=== PATIENT | male | born 1960 | race African-American/Black ===

== ENCOUNTER 2016-08-23 14:39 | Inpatient (IN) | payer BC ==
--- NOTE | 2016-08-23 18:55 | HP ---
CIWA Score - CIWA Score Nausea/Vomitin-Mild Nausea/No Vomiting Muscle Tremors: 4-Moderate,w/Arms Extend Anxiety: 4-Mod. Anxious/Guarded Agitation: 4-Moderately Restless Paroxysmal Sweats: 2 Orientation: 1-Uncertain about Date Tacttile Disturbances: 0-None Auditory Disturbances: 0-None Visual Disturbances: 0-None Headache: 1-Very Mild CIWA-Ar Total Score: 17 Admission ROS BHS - HPI Chief Complaint: WITHDRAWAL SX Allergies/Adverse Reactions: Allergies Allergy/AdvReac Type Severity Reaction Status Date / Time No Known Allergies Allergy Verified 08/23/16 17:52 History of Present Illness: 55 YEARS OLD MALE WITH LONG HISTORY OF ALCOHOL NICOTINE COCAINE DEPENDENCE, HAS HYPERTENSION HEPATITIS GLAUCOMA BPH POSITIVE PPD AND DEPRESSION IS ADMITTED TO DETOX Exam Limitations: No Limitations - Ebola screening Have you traveled outside of the country in the last 21 days: No Have you had contact with anyone from an Ebola affected area: No Have you been sick,other than usual withdrawal symptoms: No Do you have a fever: No - Review of Systems Constitutional: Chills, Loss of Appetite, Changes in sleep, Unintentional Wgt. Loss, Unexplained wgt Loss EENT: reports: Dental Problems (PARTIAL UPPER), Other (GLAUCOMA X BOTH) Respiratory: reports: No Symptoms reported Cardiac: reports: No Symptoms Reported GI: reports: Nausea, Poor Appetite, Poor Fluid Intake, Abdominal cramping : reports: Urgency Musculoskeletal: reports: Back Pain Integumentary: reports: No Symptoms Reported Neuro: reports: Tremors Endocrine: reports: No Symptoms Reported Hematology: reports: No Symptoms Reported Psychiatric: reports: Judgement Intact, Anxious, Depressed Other Systems: Reviewed and Negative Patient History - Patient Medical History Hx Anemia: Yes Hx Asthma: No Hx Chronic Obstructive Pulmonary Disease (COPD): No Hx Cancer: No Hx Cardiac Disorders: No Hx Congestive Heart Failure: No Hx Hypertension: Yes Hx Hypercholesterolemia: No Hx Pacemaker: No HX Cerebrovascular Accident: No Hx Seizures: No Hx Dementia: No Hx Diabetes: No Hx Gastrointestinal Disorders: No Hx Liver Disease: No Hx Genitourinary Disorders: No Hx Sexually Transmitted Disorders: No Hx Renal Disease (ESRD): No Hx Thyroid Disease: No Hx Human Immunodeficiency Virus (HIV): No Hx Hepatitis C: Yes Hx Depression: Yes Hx Suicide Attempt: No Hx Bipolar Disorder: No Hx Schizophrenia: No - Patient Surgical History Past Surgical History: Yes Hx Orthopedic Surgery: Yes (Fx lt ankle 01/2012) Anesthesia Reaction: No - PPD History Previous Implant?: Yes Documented Results: Positive w/proof Implanted On Prior R Admission?: No PPD to be Administered?: No - Smoking Cessation Smoking history: Current every day smoker Have you smoked in the past 12 months: Yes Aproximately how many cigarettes per day: 10 Cigars Per Day: 0 Hx Chewing Tobacco Use: No Initiated information on smoking cessation: Yes 'Breaking Loose' booklet given: 08/23/16 - Substance & Tx. History Hx Alcohol Use: Yes Hx Substance Use: Yes Substance Use Type: Alcohol, Cocaine Hx Substance Use Treatment: Yes - Substances Abused Alcohol Route: Oral Frequency: Daily Amount used: 2 pints vodka Age of first use: 7 Date of Last Use: 08/23/16 Cocaine Route: Smoking Frequency: Daily Amount used: $50 Age of first use: 28 Date of Last Use: 08/22/16 Family Disease History - Family Disease History Family Disease History: CA: Father (liver), Mother (breast) Admission Physical Exam [facility] - Vital Signs Vital Signs: Vital Signs - 24 hr 08/23/16 17:42 Temperature 95.1 F L Pulse Rate 96 H Respiratory 20 Rate Blood Pressure 139/85 - Physical General Appearance: Yes: Appropriately Dressed, Mild Distress, Alcohol on Breath , Thin, Tremorous, Irritable, Sweating, Anxious HEENTM: Yes: Hearing grossly Normal, Normal ENT Inspection, Normocephalic, Normal Voice Respiratory: Yes: Chest Non-Tender, Lungs Clear, Normal Breath Sounds, No Respiratory Distress, No Accessory Muscle Use Neck: Yes: Supple, Trachea in good position Breast: Yes: Breasts Symetrical Cardiology: Yes: Regular Rhythm, S1, S2, Tachycardia Abdominal: Yes: Non Tender, Soft Genitourinary: Yes: Within Normal Limits Back: Yes: Normal Inspection Musculoskeletal: Yes: full range of Motion, Gait Steady, Back pain, Muscle Pain Extremities: Yes: Normal Range of Motion, Non-Tender, Tremors Neurological: Yes: Alert, Motor Strength 5/5, Normal Response, Depressed Affect Integumentary: Yes: Warm Lymphatic: Yes: Within Normal Limits - Diagnostic (1) Alcohol dependence with uncomplicated withdrawal Current Visit: Yes Status: Acute (2) Hypertension Current Visit: Yes Status: Acute Qualifiers: Hypertension type: essential hypertension Qualified Code(s): I10 - Essential (primary) hypertension (3) Glaucoma Current Visit: Yes Status: Acute Qualifiers: Glaucoma type: unspecified type Laterality: bilateral Qualified Code(s): H40.9 - Unspecified glaucoma (4) BPH (benign prostatic hyperplasia) Current Visit: Yes Status: Acute Qualifiers: Prostatic enlargement morphology: non-nodular Lower urinary tract symptom presence: symptoms present Qualified Code(s): N40.1 - Benign prostatic hyperplasia with lower urinary tract symptoms (5) Hepatitis C antibody test positive Current Visit: Yes Status: Chronic (6) Weight loss Current Visit: Yes Status: Acute (7) Positive PPD, treated Current Visit: Yes Status: Resolved Comment: CHEST X RAY PENDING Cleared for Admission BHS - Detox or Rehab S Level of Care: Medically Managed Detox Regimen/Protocol: Librium BHS Breath Alcohol Content Breath Alcohol Content: 0 Vital Signs - Vital Signs Vital Signs Refused: No Temperature: 97.1 F Temperature Source: Oral Pulse Rate: 85 Respiratory Rate: 20 Blood Pressure: 120/76 BP Location: Left Arm Blood Pressure Position: Sitting - Height Height: 6 ft - Weight Weight: 140 lb Weight Measurement Method: Standing Scale Body Mass Index (BMI): 19.0 - Bowel Function Bowel Movement: Yes Urine Drug Screen - Control Is Test Valid: Yes - Results Drug Screen Negative: No Urine Drug Screen Results: INGRID-Cocaine
[2016-08-23] MEDS ORDERED: hydrOXYzine PAMOATE 50 MG CAPSULE (FP) PO PRN (19:00)
[2016-08-23] MEDS ORDERED: NICOTINE POLACRILEX 2 MG GUM BC PRN (19:00)
[2016-08-23] MEDS ORDERED: MAGNESIUM CITRATE 300 ML BOTTLE PO PRN (19:00)
[2016-08-23] MEDS ORDERED: ACETAMINOPHEN 325 MG TABLET (FP) PO PRN (19:00)
[2016-08-23] MEDS ORDERED: chlordiazePOXIDE HCL 25 MG CAPSULE PO PRN (19:00)
[2016-08-23] MEDS ORDERED: MENTHOL/PHENOL 1 EACH UD MM PRN (19:00)
[2016-08-23] MEDS ORDERED: guaiFENesin/D-METHORPHAN HB 10 ML UNIT-DOSE CUPS PO PRN (19:00)
[2016-08-23] MEDS ORDERED: MAGNESIUM HYDROX 2400MG/30ML ORAL SUSPENSION 30 ML CUP PO PRN (19:00)
[2016-08-23] MEDS ORDERED: LOPERAMIDE HCL 2 MG CAPSULE PO PRN (19:00)
[2016-08-23] MEDS ORDERED: IBUPROFEN 400 MG TABLET (FP) PO PRN (19:00)
[2016-08-23] MEDS ORDERED: P-EPHED 60MG/TRIPROLIDI 2.5MG TABLET PO PRN (19:00)
[2016-08-23 19:06] VITALS: BMI 19.0
[2016-08-23] MEDS: TAMSULOSIN HCL 0.4 MG CAP.ER.24H (FP) PO SCH (22:06)
[2016-08-23] MEDS: LATANOPROST 0.005% OPHTH SOLN 2.5ML BOTTLE OU SCH (22:06)
[2016-08-23] MEDS: diphenhydrAMINE HCL 50 MG CAPSULE PO PRN (22:07)
[2016-08-23] MEDS: chlordiazePOXIDE HCL 25 MG CAPSULE PO SCH (22:07)
[2016-08-23] MEDS: THIAMINE HCL 100 MG TABLET (FP) PO SCH (22:07)
[2016-08-23 23:18] LABS: URINE APPEARANCE CLEAR; URINE BILIRUBIN NEGATIVE (NEGATIVE); URINE BLOOD NEGATIVE (NEGATIVE); URINE COLOR STRAW; URINE GLUCOSE (UA) NEGATIVE (NEGATIVE); URINE KETONE NEGATIVE (NEGATIVE); URINE LEUK ESTERASE NEGATIVE (NEGATIVE); URINE NITRITE NEGATIVE (NEGATIVE); URINE PROTEIN NEGATIVE (NEGATIVE); URINE UROBILINOGEN NEGATIVE E.U./dl (0.2-1.0)
[2016-08-24] MEDS: chlordiazePOXIDE HCL 25 MG CAPSULE PO SCH ×4 (06:07→22:22)
[2016-08-24 10:09] LABS: MCH 29.4 pg (25.7-33.7); MCHC 32.2 g/dl (32.0-35.9); MEAN CELL VOLUME 91.1 fl (80-96); MEAN PLT VOLUME 10.7 fl (7.5-11.1); PLATELET COUNT 209 K/MM3 (134-434)
[2016-08-24] MEDS: METOPROLOL SUCCINATE 50 MG TAB.SR.24H (FP) PO SCH (10:25)
[2016-08-24] MEDS: PRENATAL VITAMINS W/ FOLIC ACID TABLET (FP) PO SCH (10:25)
[2016-08-24] MEDS: NIFEdipine E.R 60 MG TABLET (UD) PO SCH (10:25)
[2016-08-24] MEDS: NICOTINE 14 MG/24 HOURS TOPICAL PATCH TD SCH (10:26)
[2016-08-24] MEDS: LIDOCAINE 5% TOPICAL PATCH TP SCH (10:26)
[2016-08-24 10:36] LABS: ALBUMIN 3.4 g/dl (3.4-5.0); BILIRUBIN,TOTAL 0.3 mg/dL (0.2-1.0); CALCIUM 9.4 mg/dL (8.5-10.1); TOT PROT 7.4 g/dl (6.4-8.2)
--- NOTE | 2016-08-24 11:22 | PN ---
S CIWA - CIWA Score Nausea/Vomitin Muscle Tremors: 2 Anxiety: 2 Agitation: 2 Paroxysmal Sweats: 2 Orientation: 0-Oriented Tacttile Disturbances: 2-Mild Itch/Numbness/Burn Auditory Disturbances: 0-None Visual Disturbances: 0-None Headache: 0-None Present CIWA-Ar Total Score: 12 BHS Progress Note (SOAP) Subjective: feeling better ,sweats, lbp Objective: 08/24/16 11:22 Vital Signs Temperature 97.7 F 08/24/16 11:20 Pulse Rate 94 H 08/24/16 11:20 Respiratory Rate 18 08/24/16 11:20 Blood Pressure 123/88 08/24/16 11:20 O2 Sat by Pulse Oximetry (%) Laboratory Tests 08/23/16 08/24/16 08/24/16 22:00 07:00 07:00 WBC 7.0 RBC 4.38 Hgb 12.9 Hct 40.0 MCV 91.1 MCHC 32.2 RDW 14.0 Plt Count 209 D MPV 10.7 D Sodium 142 Potassium 4.6 Chloride 105 Carbon Dioxide 31 Anion Gap 6 L BUN 32 H D Creatinine 2.0 H D Creat Clearance w eGFR 34.86 Random Glucose 126 H Calcium 9.4 Total Bilirubin 0.3 D AST 47 H D ALT 101 H D Alkaline Phosphatase 65 Total Protein 7.4 Albumin 3.4 Urine Color Straw Urine Appearance Clear Urine pH 5.0 Ur Specific [place] 1.017 Urine Protein Negative Urine Glucose (UA) Negative Urine Ketones Negative Urine Blood Negative Urine Nitrite Negative Urine Bilirubin Negative Urine Urobilinogen Negative Ur Leukocyte Esterase Negative pt aox3 in nad ambulating Assessment: 08/24/16 11:23 withdrawal sx's htn renal failure elevated transaminases 08/24/16 11:24 Plan: cont. detox increase fluids repeat sma7, sgot sgpt d/c tylenol
--- NOTE | 2016-08-24 16:45 | CONSULT ---
[facility] Psychiatric Consult - Data Date of interview: 08/24/16 Admission source: [facility] Identifying data: Readmission to [facility] for this 55 y/o AA male seeking detox treatment for alcohol and cocaine dependence. Substance Abuse History: - Smoking Cessation. Smoking history: Current every day smoker. Have you smoked in the past 12 months: Yes. Aproximately how many cigarettes per day: 10. Cigars Per Day: 0. Hx Chewing Tobacco Use: No. Initiated information on smoking cessation: Yes. 'Breaking Loose' booklet given : 08/23/16. - Substance & Tx. History. Hx Alcohol Use: Yes. Hx Substance Use : Yes. Substance Use Type: Alcohol, Cocaine. Hx Substance Use Treatment: Yes. - Substances Abused. Alcohol. Route: Oral. Frequency: Daily. Amount used: 2 pints vodka. Age of first use: 7. Date of Last Use: 08/23/16. Cocaine. Route: Smoking. Frequency: Daily. Amount used: $50. Age of first use: 28. Date of Last Use: 08/22/16. Confirmed by patient. Medical History: Glaucoma (bilateral),hypertension,anemia,hepatitis C and a history of orthosurgery for fracture of left ankle (2011). Psychiatric History: No history of psychiatric hospitalizations." Just visits to emergency rooms." Diagnosed with MDD versus Bipolar Affective Disorder (self- report).Prescribed zoloft 100 mg/day + seroquel 100 mg/hs.Mr Marcos gets his OPD care at his [facility] residence,[facility].No history of suicide attempts. Physical/Sexual Abuse/Trauma History: Patient denies. Additional Comment: Urine Drug Screen Results: INGIRD-Cocaine.Noted. Mental Status Exam - Mental Status Exam Alert and Oriented to: Time, Place, Person Cognitive Function: Good Patient Appearance: Well Groomed Mood: Hopeful, Euthymic Affect: Normal Range Patient Behavior: Fatigued, Appropriate, Cooperative Speech Pattern: Clear Voice Loudness: Normal Thought Process: Goal Oriented Thought Disorder: Not Present Hallucinations: Denies Suicidal Ideation: Denies Homicidal Ideation: Denies Insight/Judgement: Poor Sleep: Poorly, Difficulty falling asleep Appetite: Good Muscle strength/Tone: Normal Gait/Station: Normal Psychiatric Findings - Problem List ([place] 1, 2,3) (1) Alcohol dependence with uncomplicated withdrawal Current Visit: Yes Status: Acute (2) Cocaine dependence Current Visit: Yes Status: Acute (3) Drug-induced mood disorder Current Visit: Yes Status: Acute (4) Nicotine dependence Current Visit: Yes Status: Acute (5) BPH (benign prostatic hyperplasia) Current Visit: Yes Status: Chronic Qualifiers: Prostatic enlargement morphology: non-nodular Lower urinary tract symptom presence: symptoms present Qualified Code(s): N40.1 - Benign prostatic hyperplasia with lower urinary tract symptoms (6) Glaucoma Current Visit: Yes Status: Chronic Qualifiers: Glaucoma type: unspecified type Laterality: bilateral Qualified Code(s): H40.9 - Unspecified glaucoma (7) Hypertension Current Visit: Yes Status: Chronic Qualifiers: Hypertension type: essential hypertension Qualified Code(s): I10 - Essential (primary) hypertension (8) Hepatitis C antibody test positive Current Visit: Yes Status: Chronic (9) Lower back pain Current Visit: Yes Status: Chronic - Initial Treatment Plan Initial Treatment Plan: Psychoeducation.Detoxification.Medications : seroquel 100 mg po hs + zoloft 50 mg po daily.Side effects/benefits discussed with patient.He agrees with plan of care.Observation.
--- NOTE | 2016-08-24 16:55 | EKG ---
Test Reason : Blood Pressure : / mmHG Vent. Rate : 073 BPM Atrial Rate : 073 BPM P-R Int : 112 ms QRS Dur : 080 ms QT Int : 378 ms P-R-T Axes : 074 076 051 degrees QTc Int : 416 ms NORMAL SINUS RHYTHM WITH SINUS ARRHYTHMIA POSSIBLE LEFT ATRIAL ENLARGEMENT LEFT VENTRICULAR HYPERTROPHY NONSPECIFIC ST AND T WAVE ABNORMALITY ABNORMAL ECG NO PREVIOUS ECGS AVAILABLE Confirmed by ART FRANKLIN MD ([id number]) on 08/24/2016 4:55:02 PM Referred By: Confirmed By:ART FRANKLIN MD
[2016-08-24] MEDS: MAG HYDROX/AL HYDROX/SIMETH 30 ML UNIT-DOSE CUP PO PRN (17:22)
[2016-08-24] MEDS: THIAMINE HCL 100 MG TABLET (FP) PO SCH (22:22)
[2016-08-24] MEDS: TAMSULOSIN HCL 0.4 MG CAP.ER.24H (FP) PO SCH (22:22)
[2016-08-24] MEDS: QUEtiapine FUMARATE 100 MG TABLET (FP) PO SCH (22:22)
[2016-08-24] MEDS: diphenhydrAMINE HCL 50 MG CAPSULE PO PRN (22:22)
[2016-08-24] MEDS: LATANOPROST 0.005% OPHTH SOLN 2.5ML BOTTLE OU SCH (22:23)
[2016-08-25] MEDS: chlordiazePOXIDE HCL 25 MG CAPSULE PO SCH ×3 (05:20→17:42)
--- NOTE | 2016-08-25 09:43 | PN ---
[facility] CIWA - CIWA Score Nausea/Vomitin-No Nausea/No Vomiting Muscle Tremors: 4-Moderate,w/Arms Extend Anxiety: 2 Agitation: 3 Paroxysmal Sweats: 2 Orientation: 0-Oriented Tacttile Disturbances: 0-None Auditory Disturbances: 0-None Visual Disturbances: 0-None Headache: 0-None Present CIWA-Ar Total Score: 11 S Progress Note (SOAP) Subjective: body ache irritable sweats interrupted sleep shakes Objective: 08/25/16 09:42 Vital Signs Temperature 97.3 F L 08/25/16 06:00 Pulse Rate 78 08/25/16 06:00 Respiratory Rate 18 08/25/16 06:00 Blood Pressure 119/85 08/25/16 06:00 O2 Sat by Pulse Oximetry (%) Laboratory Tests 08/23/16 08/24/16 08/24/16 22:00 07:00 07:00 WBC 7.0 RBC 4.38 Hgb 12.9 Hct 40.0 MCV 91.1 MCHC 32.2 RDW 14.0 Plt Count 209 D MPV 10.7 D Sodium 142 Potassium 4.6 Chloride 105 Carbon Dioxide 31 Anion Gap 6 L BUN 32 H D Creatinine 2.0 H D Creat Clearance w eGFR 34.86 Random Glucose 126 H Calcium 9.4 Total Bilirubin 0.3 D AST 47 H D ALT 101 H D Alkaline Phosphatase 65 Total Protein 7.4 Albumin 3.4 Urine Color Straw Urine Appearance Clear Urine pH 5.0 Ur Specific [place] 1.017 Urine Protein Negative Urine Glucose (UA) Negative Urine Ketones Negative Urine Blood Negative Urine Nitrite Negative Urine Bilirubin Negative Urine Urobilinogen Negative Ur Leukocyte Esterase Negative RPR Titer 08/24/16 07:00 WBC RBC Hgb Hct MCV MCHC RDW Plt Count MPV Sodium Potassium Chloride Carbon Dioxide Anion Gap BUN Creatinine Creat Clearance w eGFR Random Glucose Calcium Total Bilirubin AST ALT Alkaline Phosphatase Total Protein Albumin Urine Color Urine Appearance Urine pH Ur Specific [place] Urine Protein Urine Glucose (UA) Urine Ketones Urine Blood Urine Nitrite Urine Bilirubin Urine Urobilinogen Ur Leukocyte Esterase RPR Titer Nonreactive awake/alert ambulating no acute distress Assessment: 08/25/16 09:43 withdrawal sx Plan: continue detox increase fluids lidocaine patch analgesic balm
[2016-08-25 10:21] LABS: CREATININE 1.5 mg/dL (0.7-1.3)
[2016-08-25] MEDS: LIDOCAINE 5% TOPICAL PATCH TP SCH (10:43)
[2016-08-25] MEDS: PRENATAL VITAMINS W/ FOLIC ACID TABLET (FP) PO SCH (10:44)
[2016-08-25] MEDS: METHYL SALICYLATE/MENTHOL OINT 30 GM TUBE TP SCH ×2 (10:44→22:46)
[2016-08-25] MEDS: NIFEdipine E.R 60 MG TABLET (UD) PO SCH (10:44)
[2016-08-25] MEDS: SERTRALINE HCL 50 MG TABLET (FP) PO SCH (10:44)
[2016-08-25] MEDS: METOPROLOL SUCCINATE 50 MG TAB.SR.24H (FP) PO SCH (10:44)
[2016-08-25 10:47] LABS: SGOT/AST 33 U/L (15-37); SGPT/ALT 76 U/L (12-78)
[2016-08-25] MEDS: NICOTINE 14 MG/24 HOURS TOPICAL PATCH TD SCH (10:47)
[2016-08-25] MEDS: MAG HYDROX/AL HYDROX/SIMETH 30 ML UNIT-DOSE CUP PO PRN (17:40)
[2016-08-25] MEDS: LATANOPROST 0.005% OPHTH SOLN 2.5ML BOTTLE OU SCH (22:30)
[2016-08-25] MEDS: THIAMINE HCL 100 MG TABLET (FP) PO SCH (22:47)
[2016-08-25] MEDS: chlordiazePOXIDE 5 MG CAPSULE PO SCH (22:47)
[2016-08-25] MEDS: QUEtiapine FUMARATE 100 MG TABLET (FP) PO SCH (22:47)
[2016-08-25] MEDS: TAMSULOSIN HCL 0.4 MG CAP.ER.24H (FP) PO SCH (22:47)
[2016-08-26] MEDS: chlordiazePOXIDE 5 MG CAPSULE PO SCH ×3 (05:25→18:02)
[2016-08-26] MEDS: METOPROLOL SUCCINATE 50 MG TAB.SR.24H (FP) PO SCH (11:03)
[2016-08-26] MEDS: PRENATAL VITAMINS W/ FOLIC ACID TABLET (FP) PO SCH (11:03)
[2016-08-26] MEDS: NIFEdipine E.R 60 MG TABLET (UD) PO SCH (11:03)
[2016-08-26] MEDS: SERTRALINE HCL 50 MG TABLET (FP) PO SCH (11:03)
[2016-08-26] MEDS: METHYL SALICYLATE/MENTHOL OINT 30 GM TUBE TP SCH ×2 (11:04→22:15)
--- NOTE | 2016-08-26 11:04 | PN ---
BHS Progress Note (SOAP) Subjective: interrrupted sleep, sweats, shakes lbp Objective: 08/26/16 11:03 Vital Signs Temperature 97.9 F 08/26/16 09:38 Pulse Rate 92 H 08/26/16 09:38 Respiratory Rate 16 08/26/16 09:38 Blood Pressure 125/89 08/26/16 09:38 O2 Sat by Pulse Oximetry (%) Laboratory Tests 08/23/16 08/24/16 08/24/16 22:00 07:00 07:00 WBC 7.0 RBC 4.38 Hgb 12.9 Hct 40.0 MCV 91.1 MCHC 32.2 RDW 14.0 Plt Count 209 D MPV 10.7 D Sodium 142 Potassium 4.6 Chloride 105 Carbon Dioxide 31 Anion Gap 6 L BUN 32 H D Creatinine 2.0 H D Creat Clearance w eGFR 34.86 Random Glucose 126 H Calcium 9.4 Total Bilirubin 0.3 D AST 47 H D ALT 101 H D Alkaline Phosphatase 65 Total Protein 7.4 Albumin 3.4 Urine Color Straw Urine Appearance Clear Urine pH 5.0 Ur Specific [place] 1.017 Urine Protein Negative Urine Glucose (UA) Negative Urine Ketones Negative Urine Blood Negative Urine Nitrite Negative Urine Bilirubin Negative Urine Urobilinogen Negative Ur Leukocyte Esterase Negative RPR Titer 08/24/16 08/25/16 08/25/16 07:00 07:00 07:00 WBC RBC Hgb Hct MCV MCHC RDW Plt Count MPV Sodium 144 Potassium 4.4 Chloride 110 H Carbon Dioxide 30 Anion Gap 4 L BUN 30 H Creatinine 1.5 H D Creat Clearance w eGFR Random Glucose 90 D Calcium 9.0 Total Bilirubin AST 33 D ALT 76 D Alkaline Phosphatase Total Protein Albumin Urine Color Urine Appearance Urine pH Ur Specific [place] Urine Protein Urine Glucose (UA) Urine Ketones Urine Blood Urine Nitrite Urine Bilirubin Urine Urobilinogen Ur Leukocyte Esterase RPR Titer Nonreactive pt aox3 , lying in bed in nad Assessment: 08/26/16 11:03 withdrawal sx's Plan: cont. detox increase fluids d/c in am
[2016-08-26] MEDS: LIDOCAINE 5% TOPICAL PATCH TP SCH (11:06)
[2016-08-26] MEDS: NICOTINE 14 MG/24 HOURS TOPICAL PATCH TD SCH (11:06)
[2016-08-26] MEDS: TAMSULOSIN HCL 0.4 MG CAP.ER.24H (FP) PO SCH (22:15)
[2016-08-26] MEDS: LATANOPROST 0.005% OPHTH SOLN 2.5ML BOTTLE OU SCH (22:15)
[2016-08-26] MEDS: QUEtiapine FUMARATE 100 MG TABLET (FP) PO SCH (22:15)
[2016-08-26] MEDS: chlordiazePOXIDE HCL 10 MG CAPSULE PO SCH (22:15)
[2016-08-26] MEDS: THIAMINE HCL 100 MG TABLET (FP) PO SCH (22:16)
[2016-08-27] MEDS: chlordiazePOXIDE HCL 10 MG CAPSULE PO SCH (05:34)
--- NOTE | 2016-08-27 08:52 | PN ---
S Progress Note (SOAP) Subjective: ALERT,NO COMPLAINT Objective: 08/27/16 08:50 Vital Signs Temperature 97.3 F L 08/27/16 06:54 Pulse Rate 80 08/27/16 06:54 Respiratory Rate 18 08/27/16 06:54 Blood Pressure 118/76 08/27/16 06:54 O2 Sat by Pulse Oximetry (%) Assessment: 08/27/16 08:50 DETOX COMPLETED,NO WITHDRAWAL SYMPTOM Plan: DISCHARGE TODAY,FOLLOW UP WITH AFTER CARE PROGRAM ARRANGEMENT AND PMD FOR MEDICAL PROBLEM
--- NOTE | 2016-08-27 08:56 | DS ---
[facility] Detox Discharge Summary Admission Date: 08/23/16 Discharge Date: 08/27/16 - History Present History: Alcohol Dependence, Cocaine Dependence Additional Comments: FOLLOW UP WITH AFTER [facility] PROGRAM ARRANGEMENT AND PMD FOR MEDICAL PROBLEM Pertinent Past History: HYPERTENSION GLAUCOMA BPH HEPATITIS C WEIGHT LOSS POSITIVE PPD - Physical Exam Results Vital Signs: Vital Signs Temperature 97.3 F L 08/27/16 06:54 Pulse Rate 80 08/27/16 06:54 Respiratory Rate 18 08/27/16 06:54 Blood Pressure 118/76 08/27/16 06:54 O2 Sat by Pulse Oximetry (%) Pertinent Admission Physical Exam Findings: WITHDRAWAL SYMPTOM - Treatment Hospital Course: Detox Protocol Followed, Detoxed Safely, Responded well, Discharged Condition Good Patient has Accepted a Rehab Referral to: [facility]CL[facility]ED - Medication Discharge Medications: Ambulatory Orders Latanoprost 0.005% Eye Drops [Xalatan 0.005% Eye Drops -] 1 drop OU HS #30 drops 09/21/13 Metoprolol Succinate [Toprol Xl -] 50 mg PO DAILY 08/23/16 Nifedipine ER [Procardia Xl -] 60 mg PO DAILY 08/23/16 Tamsulosin HCl [Flomax] 0.4 mg PO DAILY 08/23/16 Quetiapine Fumarate [Seroquel] 100 mg PO HS #30 tablet 08/24/16 Sertraline HCl [Zoloft -] 50 mg PO DAILY #30 tablet 08/24/16 - Diagnosis (1) Alcohol dependence with uncomplicated withdrawal Current Visit: Yes Status: Acute (2) Cocaine dependence Current Visit: Yes Status: Acute (3) Nicotine dependence Current Visit: Yes Status: Acute (4) Weight loss Current Visit: Yes Status: Acute (5) BPH (benign prostatic hyperplasia) Current Visit: Yes Status: Chronic Qualifiers: Prostatic enlargement morphology: non-nodular Lower urinary tract symptom presence: symptoms present Qualified Code(s): N40.1 - Benign prostatic hyperplasia with lower urinary tract symptoms (6) Glaucoma Current Visit: Yes Status: Chronic Qualifiers: Glaucoma type: unspecified type Laterality: bilateral Qualified Code(s): H40.9 - Unspecified glaucoma (7) Hepatitis C antibody test positive Current Visit: Yes Status: Chronic (8) Lower back pain Current Visit: Yes Status: Chronic (9) Positive PPD, treated Current Visit: Yes Status: Resolved - AMA Did Patient Leave Against Medical Advice: No
[2016-08-27 10:28] VITALS: BP 112/85; PULSE 87; TEMP 99
[2016-08-27] MEDS: SERTRALINE HCL 50 MG TABLET (FP) PO SCH (10:52)
[2016-08-27] MEDS: METOPROLOL SUCCINATE 50 MG TAB.SR.24H (FP) PO SCH (10:52)
[2016-08-27] MEDS: NICOTINE 14 MG/24 HOURS TOPICAL PATCH TD SCH (10:52)
[2016-08-27] MEDS: NIFEdipine E.R 60 MG TABLET (UD) PO SCH (10:52)
[2016-08-27] MEDS: PRENATAL VITAMINS W/ FOLIC ACID TABLET (FP) PO SCH (10:52)
== END 2016-08-27 11:42 | disposition home or self-care (01) | DRG 774 ==
LOC: YASAS 14:39 → Y6N 19:03
PROVIDERS: ADMIT Internal Medicine Addiction Medicine; ATTEND Internal Medicine Addiction Medicine
PROC: HZ2ZZZZ Detoxification Services for Substance Abuse Treatment (ICD-10-PCS; principal; 2016-08-27)
DX: F10.230 Alcohol dependence with withdrawal, uncomplicated (principal); F14.20 Cocaine dependence, uncomplicated; F17.210 Nicotine dependence, cigarettes, uncomplicated; F19.24 Other psychoactive substance dependence with psychoactive substance-induced mood disorder; N40.1 Benign prostatic hyperplasia with lower urinary tract symptoms; M54.5 Low back pain; G89.29 Other chronic pain; H40.9 Unspecified glaucoma; R76.11 Nonspecific reaction to tuberculin skin test without active tuberculosis; R63.4 Abnormal weight loss; Z68.1 Body mass index [BMI] 19.9 or less, adult
CPT/HCPCS: 36415; 71020-TC; 80048; 80053; 81003; 84450; 84460; 85027; 86593; 93005; 93010

== ENCOUNTER 2018-06-19 13:43 | Inpatient (IN) | payer BC ==
[2018-06-19 21:32] VITALS: BMI 18.6
[2018-06-19] MEDS ORDERED: MELATONIN 5 MG TABLETS PO PRN (22:00)
--- NOTE | 2018-06-19 22:03 | HP ---
CIWA Score Nausea/Vomitin-Mild Nausea/No Vomiting Muscle Tremors: 4-Moderate,w/Arms Extend Anxiety: 4-Mod. Anxious/Guarded Agitation: 1-Slight > Activity Paroxysmal Sweats: 2 Orientation: 3-Disoriented Date>2 days Tacttile Disturbances: 1-Very Mild Itch/Numbness Auditory Disturbances: 0-None Visual Disturbances: 0-None Headache: 0-None Present CIWA-Ar Total Score: 16 - Admission Criteria OASAS Guidelines: Admission for Medically Managed Detox: Requires at least one of the followin. CIWA greater than 12 2. Seizures within the past 24 hours 3. Delirium tremens within the past 24 hours 4. Hallucinations within the past 24 hours 5. Acute intervention needed for co occurring medical disorder 6. Acute intervention needed for co occurring psychiatric disorder 7. Severe withdrawal that cannot be handled at a lower level of care (continued vomiting, continued diarrhea, abnormal vital signs) requiring intravenous medication and/or fluids 8. Admission ROS S - [facility] Chief Complaint: Alcohol withdrawal symptoms Allergies/Adverse Reactions: Allergies Allergy/AdvReac Type Severity Reaction Status Date / Time No Known Allergies Allergy Verified 08/23/16 17:52 History of Present Illness: 57 years ol male with a long history of alcohol dependence is seeking admission to Detox. Patient was in detox in January 2018 at [facility]. He reports 2 years of sobriety. He has medical history of Anemia, Glaucoma, BPH, Low back pain, Hypertension, Hep C, anxiety and Depression. He reports suicide attempt in 1978 and denies suicidal ideation at this time. Exam Limitations: No Limitations - Ebola screening Have you traveled outside of the country in the last 21 days: No Have you had contact with anyone from an Ebola affected area: No Have you been sick,other than usual withdrawal symptoms: No Do you have a fever: No - Review of Systems Constitutional: Chills, Loss of Appetite, Malaise, Night Sweats, Changes in sleep EENT: reports: No Symptoms Reported, Blurred Vision Respiratory: reports: No Symptoms reported Cardiac: reports: No Symptoms Reported GI: reports: Nausea, Poor Appetite, Poor Fluid Intake, Vomiting, Abdominal cramping : reports: No Symptoms Reported Musculoskeletal: reports: Back Pain, Muscle Pain, Muscle Weakness, Joint Stiffness Integumentary: reports: Dryness, Flushing Neuro: reports: Headache, Tremors Endocrine: reports: No Symptoms Reported Hematology: reports: Anemia Psychiatric: reports: Anxious, Depressed Other Systems: Reviewed and Negative Patient History - Patient Medical History Hx Anemia: Yes (Not on medication ) Hx Asthma: No Hx Chronic Obstructive Pulmonary Disease (COPD): No Hx Cancer: No Hx Cardiac Disorders: No Hx Congestive Heart Failure: No Hx Hypertension: Yes (Nifedipine, Metoprolol) Hx Hypercholesterolemia: No Hx Pacemaker: No HX Cerebrovascular Accident: No Hx Seizures: No Hx Dementia: No Hx Diabetes: No Hx Gastrointestinal Disorders: No Hx Liver Disease: Yes (Hep C) Hx Genitourinary Disorders: Yes (BPH - Tamsulosin) Hx Sexually Transmitted Disorders: No Hx Renal Disease (ESRD): No Hx Thyroid Disease: No Hx Human Immunodeficiency Virus (HIV): No Hx Hepatitis C: Yes (Not treated) Hx Depression: Yes Hx Suicide Attempt: Yes (Suicide attempt in 1978, denies suicidal ideation at this time) Hx Bipolar Disorder: No Hx Schizophrenia: No Other Medical History: Anxiety, Glaucoma, low back pain - Not on medication - Patient Surgical History Past Surgical History: Yes Hx Orthopedic Surgery: Yes (Fx lt ankle 01/2012) Anesthesia Reaction: No - PPD History Previous Implant?: No (PPD POSITIVE. INH and VIT. B 1993) Documented Results: Positive w/o proof Implanted On Prior [facility] Admission?: No PPD to be Administered?: No - Reproductive History Patient is a Female of Child Bearing Age (11 -55 yrs old): No (MALE) - Smoking Cessation Smoking history: Current every day smoker Have you smoked in the past 12 months: Yes Aproximately how many cigarettes per day: 10 Cigars Per Day: 0 Hx Chewing Tobacco Use: No Initiated information on smoking cessation: Yes 'Breaking Loose' booklet given: 06/19/18 - Substances Abused Alcohol Route: Oral Frequency: Daily Amount used: 1 PINT VODKA Age of first use: 13 Date of Last Use: 06/19/18 Cocaine Route: Smoking Frequency: Daily Amount used: $50 Age of first use: 28 Date of Last Use: 06/18/18 Family Disease History - Family Disease History Family Disease History: CA: Father (liver), Mother (breast) Admission Physical Exam [facility] - Vital Signs Vital Signs: Vital Signs - 24 hr 06/19/18 21:24 Temperature 97.4 F L Pulse Rate 81 Respiratory 18 Rate Blood Pressure 153/105 H - Physical General Appearance: Yes: Moderate Distress, Tremorous, Irritable, Sweating, Anxious HEENTM: Yes: EOMI, Normal ENT Inspection, Normal Voice, FAZAL Respiratory: Yes: Lungs Clear, Normal Breath Sounds, No Respiratory Distress Neck: Yes: Supple Breast: Yes: Breast Exam Deferred Cardiology: Yes: Regular Rhythm, Regular Rate Abdominal: Yes: Normal Bowel Sounds Genitourinary: Yes: Within Normal Limits Back: Yes: Normal Inspection Musculoskeletal: Yes: Back pain, Muscle Pain Extremities: Yes: Tremors Neurological: Yes: analyst II-XII NML intact, Alert, Normal Mood/Affect Integumentary: Yes: Warm Lymphatic: Yes: Within Normal Limits - Diagnostic (1) Alcohol dependence with uncomplicated withdrawal Current Visit: Yes Status: Chronic (2) Cocaine dependence Current Visit: Yes Status: Chronic Qualifiers: Substance use status: uncomplicated Qualified Code(s): F14.20 - Cocaine dependence, uncomplicated (3) Nicotine dependence Current Visit: Yes Status: Chronic (4) BPH (benign prostatic hyperplasia) Current Visit: Yes Status: Chronic Qualifiers: Lower urinary tract symptom presence: symptoms present (5) Glaucoma Current Visit: Yes Status: Chronic Qualifiers: Glaucoma type: unspecified type Laterality: bilateral (6) Hepatitis C antibody test positive Current Visit: Yes Status: Chronic (7) Hypertension Current Visit: Yes Status: Chronic Qualifiers: Hypertension type: essential hypertension Qualified Code(s): I10 - Essential (primary) hypertension (8) Lower back pain Current Visit: Yes Status: Chronic (9) Anxiety Current Visit: Yes Status: Chronic (10) Depression Current Visit: Yes Status: Chronic Qualifiers: Depression Type: unspecified Qualified Code(s): F32.9 - Major depressive disorder, single episode, unspecified (11) Anemia Current Visit: Yes Status: Chronic Qualifiers: Anemia type: iron deficiency Cleared for Admission [facility] - Detox or Rehab [facility] Level of Care: Medically Managed Detox Regimen/Protocol: Librium [facility] Breath Alcohol Content Breath Alcohol Content: 0 Urine Drug Screen - Results Drug Screen Negative: No Urine Drug Screen Results: THC-Marijuana, INGRID-Cocaine, MET-Methamphetamine, MDMA -Ecstasy
[2018-06-19] MEDS ORDERED: LOPERAMIDE HCL 2 MG CAPSULE PO PRN (22:32)
[2018-06-19] MEDS ORDERED: MAGNESIUM HYDROX 2400MG/30ML ORAL SUSPENSION 30 ML CUP PO PRN (22:32)
[2018-06-19] MEDS ORDERED: P-EPHED 60MG/TRIPROLIDI 2.5MG TABLET PO PRN (22:32)
[2018-06-19] MEDS ORDERED: MENTHOL/PHENOL 1 EACH UD MM PRN (22:32)
[2018-06-19] MEDS ORDERED: MAG HYDROX/AL HYDROX/SIMETH 30 ML UNIT-DOSE CUP PO PRN (22:32)
[2018-06-19] MEDS ORDERED: NICOTINE POLACRILEX 2 MG GUM BC PRN (22:32)
[2018-06-19] MEDS ORDERED: ACETAMINOPHEN 325 MG TABLET (FP) PO PRN (22:32)
[2018-06-19] MEDS ORDERED: MAGNESIUM CITRATE 300 ML BOTTLE PO PRN (22:32)
[2018-06-19] MEDS ORDERED: chlordiazePOXIDE HCL 25 MG CAPSULE PO PRN (22:32)
[2018-06-19] MEDS ORDERED: IBUPROFEN 400 MG TABLET (FP) PO PRN (22:32)
[2018-06-19] MEDS ORDERED: guaiFENesin/D-METHORPHAN HB 10 ML UNIT-DOSE CUPS PO PRN (22:32)
[2018-06-19] MEDS: chlordiazePOXIDE HCL 25 MG CAPSULE PO SCH (23:04)
[2018-06-20] MEDS: chlordiazePOXIDE HCL 25 MG CAPSULE PO SCH ×4 (05:26→22:32)
[2018-06-20] MEDS: TAMSULOSIN HCL 0.4 MG CAP PO SCH (09:38)
--- NOTE | 2018-06-20 11:06 | CONSULT ---
[facility] Psychiatric Consult - Data Date of interview: 06/20/18 Admission source: [facility] Identifying data: Patient is a 57 year old single male, without children, unemployed, living in an SRO, and is supported by [facility]. This is one of multiple admissions for patient. Patient admitted to for alcohol and cocaine dependence. Substance Abuse History: - Smoking Cessation. Smoking history: Current every day smoker. Have you smoked in the past 12 months: Yes. Aproximately how many cigarettes per day: 10. Cigars Per Day: 0. Hx Chewing Tobacco Use: No. Initiated information on smoking cessation: Yes. 'Breaking Loose' booklet given : 06/19/18. - Substances Abused. Alcohol. Route: Oral. Frequency: Daily. Amount used: 1 PINT VODKA. Age of first use: 13. Date of Last Use: . Cocaine. Route: Smoking. Frequency: Daily. Amount used: $50. Age of first use: 28. Date of Last Use: 06/18/18 Medical History: benign prostate hyperplasia, Anemia, hypertension. Hep C Psychiatric History: Patient reports h/o multiple psychiatric hospitalizations, most recently at [facility] in January of 2018. Patient is also known to [facility] and [facility]. Mr. Marcos has a past history of accepting zoloft and seroquel. Patient has not accepted psychotropic medications in several months. He denies current outpatient psychiatric care. Mr. Marcos reports one suicide attempt by overdose in 1995. At present he reports stable mood but is experiencing difficulty sleeping. Physical/Sexual Abuse/Trauma History: denies. Mental Status Exam - Mental Status Exam Alert and Oriented to: Time, Place, Person Cognitive Function: Good Patient Appearance: Well Groomed Mood: Euthymic Affect: Mood Congruent Patient Behavior: Appropriate, Cooperative Speech Pattern: Clear, Appropriate Voice Loudness: Normal Thought Process: Intact, Goal Oriented Thought Disorder: Not Present Hallucinations: Denies Suicidal Ideation: Denies Homicidal Ideation: Denies Insight/Judgement: Poor Sleep: Poorly Appetite: Fair Muscle strength/Tone: Normal Gait/Station: Normal Psychiatric Findings - Problem List ([place] 1, 2,3) (1) Substance-induced sleep disorder Current Visit: Yes Status: Acute (2) Alcohol dependence with uncomplicated withdrawal Current Visit: Yes Status: Acute (3) Cocaine dependence Current Visit: Yes Status: Chronic Qualifiers: Substance use status: uncomplicated Qualified Code(s): F14.20 - Cocaine dependence, uncomplicated (4) Nicotine dependence Current Visit: Yes Status: Chronic - Initial Treatment Plan Initial Treatment Plan: Psychoeducation provided. Detoxification in progress. Will order Seroquel 50mg qhs. Benefits and side effects discussed. Verbal consent given.
[2018-06-20] MEDS: NICOTINE 14 MG/24 HOURS TOPICAL PATCH TD SCH (11:08)
[2018-06-20] MEDS: NIFEdipine E.R 60 MG TABLET (UD) PO SCH (11:09)
[2018-06-20] MEDS: PRENATAL VITAMINS W/ FOLIC ACID TABLET (FP) PO SCH (11:09)
[2018-06-20 11:37] LABS: ALK PHOS 59 U/L (45-117); ANION GAP 8 MMOL/L (8-16); BILIRUBIN,TOTAL 0.1 mg/dL (0.2-1); BLOOD UREA NITROGEN 30 mg/dL (7-18); CALCIUM 8.5 mg/dL (8.5-10.1); CHLORIDE 111 mmol/L (98-107); CO2 26 mmol/L (21-32); CREATININE 2.2 mg/dL (0.55-1.3); GLUCOSE,RANDOM 110 mg/dL (74-106); POTASSIUM 4.2 mmol/L (3.5-5.1); SGOT/AST 31 U/L (15-37); SGPT/ALT 37 U/L (13-61); SODIUM 145 mmol/L (136-145); TOT PROT 6.2 g/dl (6.4-8.2)
[2018-06-20 11:55] LABS: HEMATOCRIT 34.6 % (35.4-49); HEMOGLOBIN 11.5 GM/dL (11.7-16.9); MCH 29.3 pg (25.7-33.7); MCHC 33.1 g/dl (32.0-35.9); MEAN CELL VOLUME 88.7 fl (80-96); PLATELET COUNT 180 K/MM3 (134-434); RBC 3.91 M/mm3 (4.00-5.60); RDW 14.4 % (11.9-15.9); WHITE BLOOD COUNT 4.5 K/mm3 (4.0-10.0)
--- NOTE | 2018-06-20 15:12 | PN ---
S CIWA - CIWA Score Nausea/Vomitin-No Nausea/No Vomiting Muscle Tremors: 3 Anxiety: 3 Agitation: 3 Paroxysmal Sweats: 3 Orientation: 0-Oriented Tacttile Disturbances: 0-None Auditory Disturbances: 0-None Visual Disturbances: 0-None Headache: 1-Very Mild CIWA-Ar Total Score: 13 BHS Progress Note (SOAP) Subjective: sweats shakes interrupted sleep body aches i want ensure bid Objective: 06/20/18 15:10 Vital Signs Temperature 97.7 F 06/20/18 13:54 Pulse Rate 97 H 06/20/18 13:54 Respiratory Rate 18 06/20/18 13:54 Blood Pressure 112/78 06/20/18 13:54 O2 Sat by Pulse Oximetry (%) Laboratory Tests 06/20/18 06/20/18 06/20/18 07:00 07:00 07:00 WBC 4.5 RBC 3.91 L Hgb 11.5 L Hct 34.6 L MCV 88.7 MCH 29.3 MCHC 33.1 RDW 14.4 Plt Count 180 MPV 10.0 Sodium 145 Potassium 4.2 Chloride 111 H Carbon Dioxide 26 Anion Gap 8 BUN 30 H Creatinine 2.2 H Creat Clearance w eGFR 31.01 Random Glucose 110 H Calcium 8.5 Total Bilirubin 0.1 L AST 31 ALT 37 Alkaline Phosphatase 59 Total Protein 6.2 L Albumin 3.0 L RPR Titer HIV 1&2 Antibody Screen Negative HIV P24 Antigen Negative 06/20/18 07:00 WBC RBC Hgb Hct MCV MCH MCHC RDW Plt Count MPV Sodium Potassium Chloride Carbon Dioxide Anion Gap BUN Creatinine Creat Clearance w eGFR Random Glucose Calcium Total Bilirubin AST ALT Alkaline Phosphatase Total Protein Albumin RPR Titer Nonreactive HIV 1&2 Antibody Screen HIV P24 Antigen elevated bun and creatine; repeat labs encouraged water intake aaox3 ambulating no acute distress Assessment: 06/20/18 15:11 withdrawal sx Plan: continue detox increase fluids ensure plus bid
[2018-06-20] MEDS: THIAMINE HCL 100 MG TABLET (FP) PO SCH (22:32)
[2018-06-20] MEDS: QUEtiapine FUMARATE 50 MG TABLET PO SCH (22:32)
[2018-06-21] MEDS: chlordiazePOXIDE HCL 25 MG CAPSULE PO SCH ×3 (06:20→18:33)
[2018-06-21] MEDS: PRENATAL VITAMINS W/ FOLIC ACID TABLET (FP) PO SCH (10:37)
[2018-06-21] MEDS: NIFEdipine E.R 60 MG TABLET (UD) PO SCH (10:37)
[2018-06-21] MEDS: NICOTINE 14 MG/24 HOURS TOPICAL PATCH TD SCH (10:37)
[2018-06-21] MEDS: TAMSULOSIN HCL 0.4 MG CAP PO SCH (10:37)
--- NOTE | 2018-06-21 14:14 | PN ---
S CIWA - CIWA Score Nausea/Vomitin-No Nausea/No Vomiting Muscle Tremors: 3 Anxiety: 3 Agitation: 3 Paroxysmal Sweats: 2 Orientation: 0-Oriented Tacttile Disturbances: 0-None Auditory Disturbances: 0-None Visual Disturbances: 0-None Headache: 0-None Present CIWA-Ar Total Score: 11 BHS Progress Note (SOAP) Subjective: sweats interrupted sleep body aches Objective: 06/21/18 14:13 Vital Signs Temperature 98.1 F 06/21/18 14:00 Pulse Rate 98 H 06/21/18 14:00 Respiratory Rate 18 06/21/18 14:00 Blood Pressure 135/61 06/21/18 14:00 O2 Sat by Pulse Oximetry (%) Laboratory Tests 06/20/18 06/20/18 06/20/18 07:00 07:00 07:00 WBC 4.5 RBC 3.91 L Hgb 11.5 L Hct 34.6 L MCV 88.7 MCH 29.3 MCHC 33.1 RDW 14.4 Plt Count 180 MPV 10.0 Sodium 145 Potassium 4.2 Chloride 111 H Carbon Dioxide 26 Anion Gap 8 BUN 30 H Creatinine 2.2 H Creat Clearance w eGFR 31.01 Random Glucose 110 H Calcium 8.5 Total Bilirubin 0.1 L AST 31 ALT 37 Alkaline Phosphatase 59 Total Protein 6.2 L Albumin 3.0 L RPR Titer HIV 1&2 Antibody Screen Negative HIV P24 Antigen Negative 06/20/18 07:00 WBC RBC Hgb Hct MCV MCH MCHC RDW Plt Count MPV Sodium Potassium Chloride Carbon Dioxide Anion Gap BUN Creatinine Creat Clearance w eGFR Random Glucose Calcium Total Bilirubin AST ALT Alkaline Phosphatase Total Protein Albumin RPR Titer Nonreactive HIV 1&2 Antibody Screen HIV P24 Antigen aaox3 ambulating no acute distress Assessment: 06/21/18 14:13 withdrawal sx Plan: continue detox increase fluids
[2018-06-21] MEDS: QUEtiapine FUMARATE 50 MG TABLET PO SCH (22:25)
[2018-06-21] MEDS: THIAMINE HCL 100 MG TABLET (FP) PO SCH (22:25)
[2018-06-21] MEDS: chlordiazePOXIDE 5 MG CAPSULE PO SCH (22:25)
[2018-06-22] MEDS: chlordiazePOXIDE 5 MG CAPSULE PO SCH ×3 (06:14→17:53)
[2018-06-22] MEDS: NIFEdipine E.R 60 MG TABLET (UD) PO SCH (11:01)
[2018-06-22] MEDS: TAMSULOSIN HCL 0.4 MG CAP PO SCH (11:01)
[2018-06-22] MEDS: PRENATAL VITAMINS W/ FOLIC ACID TABLET (FP) PO SCH (11:01)
[2018-06-22] MEDS: NICOTINE 14 MG/24 HOURS TOPICAL PATCH TD SCH (11:01)
[2018-06-22 11:05] LABS: ALBUMIN 3.1 g/dl (3.4-5.0); ALK PHOS 59 U/L (45-117); ANION GAP 6 MMOL/L (8-16); BILIRUBIN,TOTAL 0.2 mg/dL (0.2-1); BLOOD UREA NITROGEN 22 mg/dL (7-18); CALCIUM 9.1 mg/dL (8.5-10.1); CHLORIDE 110 mmol/L (98-107); CO2 28 mmol/L (21-32); CREATININE 1.5 mg/dL (0.55-1.3); GLUCOSE,RANDOM 78 mg/dL (74-106); POTASSIUM 4.6 mmol/L (3.5-5.1); SGOT/AST 54 U/L (15-37); SGPT/ALT 65 U/L (13-61); SODIUM 145 mmol/L (136-145); TOT PROT 6.6 g/dl (6.4-8.2)
[2018-06-22] MEDS ORDERED: RANITIDINE HCL 150 MG TABLET (FP) PO ONE (13:25)
--- NOTE | 2018-06-22 16:58 | PN ---
BHS Progress Note (SOAP) Subjective: Body Aches, Interrupted Sleep, H/A, Sweating. Objective: PATIENT A & O X 3, OBSERVED AMBULATING ON UNIT. IN NO ACUTE DISTRESS. 06/22/18 16:56 Vital Signs Temperature 98.7 F 06/22/18 14:04 Pulse Rate 83 06/22/18 14:04 Respiratory Rate 18 06/22/18 14:04 Blood Pressure 123/75 06/22/18 14:04 O2 Sat by Pulse Oximetry (%) Laboratory Tests 06/20/18 06/20/18 06/20/18 07:00 07:00 07:00 WBC 4.5 RBC 3.91 L Hgb 11.5 L Hct 34.6 L MCV 88.7 MCH 29.3 MCHC 33.1 RDW 14.4 Plt Count 180 MPV 10.0 Sodium 145 Potassium 4.2 Chloride 111 H Carbon Dioxide 26 Anion Gap 8 BUN 30 H Creatinine 2.2 H Creat Clearance w eGFR 31.01 Random Glucose 110 H Calcium 8.5 Total Bilirubin 0.1 L AST 31 ALT 37 Alkaline Phosphatase 59 Total Protein 6.2 L Albumin 3.0 L RPR Titer HIV 1&2 Antibody Screen Negative HIV P24 Antigen Negative 06/20/18 06/22/18 07:00 07:00 WBC RBC Hgb Hct MCV MCH MCHC RDW Plt Count MPV Sodium 145 Potassium 4.6 Chloride 110 H Carbon Dioxide 28 Anion Gap 6 L BUN 22 H Creatinine 1.5 H Creat Clearance w eGFR 48.24 Random Glucose 78 Calcium 9.1 Total Bilirubin 0.2 AST 54 H ALT 65 H Alkaline Phosphatase 59 Total Protein 6.6 Albumin 3.1 L RPR Titer Nonreactive HIV 1&2 Antibody Screen HIV P24 Antigen LABS NOTED. RESULTS OF REPEAT CMP NOTED. MODERATE IMPROVEMENT IN BUN, CREATININE, AND GFR NOTED. 06/22/18 16:59 Assessment: 06/22/18 16:56 WITHDRAWAL SYMPTOMS. ANEMIA (NORMOCYTIC). 06/22/18 17:00 Plan: CONTINUE DETOX. PATIENT SCHEDULED FOR D/C TOMORROW.
[2018-06-22] MEDS: THIAMINE HCL 100 MG TABLET (FP) PO SCH (22:26)
[2018-06-22] MEDS: RANITIDINE HCL 150 MG TABLET (FP) PO SCH (22:26)
[2018-06-22] MEDS: QUEtiapine FUMARATE 50 MG TABLET PO SCH (22:26)
[2018-06-22] MEDS: chlordiazePOXIDE HCL 10 MG CAPSULE PO SCH (22:26)
[2018-06-23] MEDS: chlordiazePOXIDE HCL 10 MG CAPSULE PO SCH ×2 (05:43→11:17)
[2018-06-23] MEDS: NIFEdipine E.R 60 MG TABLET (UD) PO SCH (09:21)
[2018-06-23] MEDS: PRENATAL VITAMINS W/ FOLIC ACID TABLET (FP) PO SCH (09:21)
[2018-06-23] MEDS: RANITIDINE HCL 150 MG TABLET (FP) PO SCH (09:21)
[2018-06-23] MEDS: TAMSULOSIN HCL 0.4 MG CAP PO SCH (09:21)
--- NOTE | 2018-06-23 09:26 | DS ---
[facility] Detox Discharge Summary Admission Date: 06/19/18 Discharge Date: 06/23/18 - History Present History: Alcohol Dependence, Cocaine Dependence - Physical Exam Results Vital Signs: Vital Signs Temperature 98.2 F 06/23/18 06:00 Pulse Rate 70 06/23/18 06:00 Respiratory Rate 18 06/23/18 06:00 Blood Pressure 122/89 06/23/18 06:00 O2 Sat by Pulse Oximetry (%) - Treatment Hospital Course: Detox Protocol Followed, Detoxed Safely, Responded well, Discharged Condition Good, Rehab Referral Accepted - Medication Discharge Medications: Ambulatory Orders Sertraline HCl [Zoloft -] 50 mg PO DAILY #30 tablet 08/24/16 Metoprolol Succinate [Toprol XL -] 50 mg PO DAILY #30 08/27/16 Nifedipine ER [Procardia XL -] 60 mg PO DAILY #30 08/27/16 Tamsulosin HCl [Flomax -] 0.4 mg PO DAILY #30 08/27/16 - Diagnosis (1) Alcohol dependence with uncomplicated withdrawal Current Visit: Yes Status: Chronic (2) Substance-induced sleep disorder Current Visit: Yes Status: Acute (3) Anemia Current Visit: Yes Status: Chronic Qualifiers: Anemia type: iron deficiency (4) Anxiety Current Visit: Yes Status: Chronic (5) BPH (benign prostatic hyperplasia) Current Visit: Yes Status: Chronic Qualifiers: Lower urinary tract symptom presence: symptoms present (6) Cocaine dependence Current Visit: Yes Status: Chronic Qualifiers: Substance use status: uncomplicated Qualified Code(s): F14.20 - Cocaine dependence, uncomplicated (7) Depression Current Visit: Yes Status: Chronic Qualifiers: Depression Type: unspecified Qualified Code(s): F32.9 - Major depressive disorder, single episode, unspecified (8) Glaucoma Current Visit: Yes Status: Chronic Qualifiers: Glaucoma type: unspecified type Laterality: bilateral (9) Hepatitis C antibody test positive Current Visit: Yes Status: Chronic (10) Hypertension Current Visit: Yes Status: Chronic Qualifiers: Hypertension type: essential hypertension Qualified Code(s): I10 - Essential (primary) hypertension (11) Lower back pain Current Visit: Yes Status: Chronic (12) Nicotine dependence Current Visit: Yes Status: Chronic Qualifiers: Nicotine product type: cigarettes Substance use status: uncomplicated Qualified Code(s): F17.210 - Nicotine dependence, cigarettes, uncomplicated (13) Drug-induced mood disorder Current Visit: No Status: Acute (14) Weight loss Current Visit: No Status: Acute - AMA Did Patient Leave Against Medical Advice: No (ref[facility])
[2018-06-23 10:02] VITALS: BP 150/99; PULSE 96; TEMP 98.7
[2018-06-23] MEDS: NICOTINE 14 MG/24 HOURS TOPICAL PATCH TD SCH (11:17)
== END 2018-06-23 12:09 | disposition home or self-care (01) | DRG 774 ==
LOC: YASAS 13:43 → Y6N 22:45
PROVIDERS: ADMIT Neuromusculoskeletal Medicine & OMM; ATTEND Neuromusculoskeletal Medicine & OMM
PROC: HZ2ZZZZ Detoxification Services for Substance Abuse Treatment (ICD-10-PCS; principal; 2018-06-19)
DX: F10.230 Alcohol dependence with withdrawal, uncomplicated (principal); F14.20 Cocaine dependence, uncomplicated; F17.210 Nicotine dependence, cigarettes, uncomplicated; F19.24 Other psychoactive substance dependence with psychoactive substance-induced mood disorder; F19.282 Other psychoactive substance dependence with psychoactive substance-induced sleep disorder; F41.9 Anxiety disorder, unspecified; F32.9 Major depressive disorder, single episode, unspecified; D50.9 Iron deficiency anemia, unspecified; I10 Essential (primary) hypertension; M54.5 Low back pain; H40.9 Unspecified glaucoma; N40.0 Benign prostatic hyperplasia without lower urinary tract symptoms; R76.8 Other specified abnormal immunological findings in serum; R63.4 Abnormal weight loss; Z68.1 Body mass index [BMI] 19.9 or less, adult
CPT/HCPCS: 36415; 71046-TC-FY; 80053; 85027; 86593; 87389

== ENCOUNTER 2019-02-26 15:08 | Inpatient (IN) | payer BC ==
[2019-02-26 19:13] VITALS: BMI 19.5
--- NOTE | 2019-02-26 20:37 | HP ---
CIWA Score Nausea/Vomitin-Mild Nausea/No Vomiting Muscle Tremors: 3 Anxiety: 2 Agitation: 2 Paroxysmal Sweats: 2 Orientation: 0-Oriented Tacttile Disturbances: 0-None Auditory Disturbances: 0-None Visual Disturbances: 0-None Headache: 2-Mild CIWA-Ar Total Score: 12 - Admission Criteria OASAS Guidelines: Admission for Medically Managed Detox: Requires at least one of the followin. CIWA greater than 12 2. Seizures within the past 24 hours 3. Delirium tremens within the past 24 hours 4. Hallucinations within the past 24 hours 5. Acute intervention needed for co occurring medical disorder 6. Acute intervention needed for co occurring psychiatric disorder 7. Severe withdrawal that cannot be handled at a lower level of care (continued vomiting, continued diarrhea, abnormal vital signs) requiring intravenous medication and/or fluids 8. Patient presents the following: CIWA greater than 12 Admission Criteria Met: Admission criteria met Admission ROS [facility] Chief Complaint: heroin detox Allergies/Adverse Reactions: Allergies Allergy/AdvReac Type Severity Reaction Status Date / Time No Known Allergies Allergy Verified 02/26/19 18:57 History of Present Illness: 58 yo with HCV pos- did not complete treatment, glaucoma, anemia alcohol use disorder, left [facility] detox 3 days ago and has been drinking since discharge. Sayanay has been walking the streets for 2 days straight b/c he was locked out of his room at the [facility]. h/o ankle surgery 2011- uses cane to ambulate States he drinks liqour 2 pints/day. No seizures/DT's. Cocaine-$50/day, IH Heroin use- occasional Homeless/SRO On SSI No family Does not work PCP- in [place], Dr. Katarina PINZON- no recent meds - Ebola screening Have you traveled outside of the country in the last 21 days: No Have you had contact with anyone from an Ebola affected area: No Do you have a fever: No - Review of Systems Constitutional: Other (bilateral feet and ankle swelling- sayanay has been walking the streets for 2 days straight b/c he locked out of his room at the [facility]) Respiratory: reports: No Symptoms reported Cardiac: reports: No Symptoms Reported GI: reports: No Symptoms Reported : reports: No Symptoms Reported Musculoskeletal: reports: Other (ankle pain) Integumentary: reports: No Symptoms Reported Neuro: reports: No Symptoms reported Endocrine: reports: No Symptoms Reported Hematology: reports: No Symptoms Reported Psychiatric: reports: No Sypmtoms Reported Patient History - Patient Medical History Hx Anemia: Yes (Not on medication ) Hx Asthma: No Hx Chronic Obstructive Pulmonary Disease (COPD): No Hx Cancer: No Hx Cardiac Disorders: No Hx Congestive Heart Failure: No Hx Hypertension: Yes (Nifedipine, Metoprolol) Hx Hypercholesterolemia: No Hx Pacemaker: No HX Cerebrovascular Accident: No Hx Seizures: No Hx Dementia: No Hx Diabetes: No Hx Gastrointestinal Disorders: No Hx Liver Disease: Yes (Hep C) Hx Genitourinary Disorders: Yes (BPH - Tamsulosin) Hx Sexually Transmitted Disorders: No Hx Renal Disease (ESRD): No Hx Thyroid Disease: No Hx Human Immunodeficiency Virus (HIV): No Hx Hepatitis C: Yes (Not treated) Hx Depression: Yes Hx Suicide Attempt: Yes (Suicide attempt in 1978, denies suicidal ideation at this time) Hx Bipolar Disorder: No Hx Schizophrenia: No - Patient Surgical History Past Surgical History: Yes Hx Orthopedic Surgery: Yes (Fx lt ankle 01/2012) Anesthesia Reaction: No - Smoking Cessation Smoking history: Current every day smoker Have you smoked in the past 12 months: Yes Aproximately how many cigarettes per day: 5 Cigars Per Day: 0 Hx Chewing Tobacco Use: No Initiated information on smoking cessation: Yes 'Breaking Loose' booklet given: 02/26/19 - Substance & Tx. History Substance Use Type: Alcohol, Cocaine - Substances abused Alcohol Substance route: Oral Frequency: Daily Amount used: 3pints of vodka/day Age of first use: 13 Date of last use: 02/26/19 Heroin Substance route: Inhalation Frequency: 1-2 times per week Amount used: 2 bags Age of first use: 16 Date of last use: 02/26/19 Admission Physical Exam BHS - Vital Signs Vital Signs: Vital Signs - 24 hr 02/26/19 19:09 Temperature 98.6 F Pulse Rate 97 H Respiratory 16 Rate Blood Pressure 118/77 - Physical General Appearance: Yes: Disheveled, Thin HEENTM: Yes: Within Normal Limits, EOMI Respiratory: Yes: Within Normal Limits, Lungs Clear Neck: Yes: Trachea in good position Cardiology: Yes: Within Normal Limits, Regular Rhythm, Regular Rate Abdominal: Yes: Within Normal Limits, Normal Bowel Sounds Back: Yes: Within Normal Limits Musculoskeletal: Yes: Joint Stiffness (uses cane to ambulate), Other Extremities: Yes: Other (swelling of both feet to mid calf- pitting edema, faint pulses eloisa.) Neurological: Yes: Within Normal Limits, Fully Oriented, Alert Integumentary: Yes: Within Normal Limits, Normal Color - Diagnostic (1) Alcohol dependence with uncomplicated withdrawal Current Visit: No Status: Chronic (2) BPH (benign prostatic hyperplasia) Current Visit: No Status: Chronic Qualifiers: Lower urinary tract symptom presence: symptoms present (3) Cocaine dependence Current Visit: No Status: Chronic Qualifiers: Substance use status: uncomplicated Qualified Code(s): F14.20 - Cocaine dependence, uncomplicated (4) Hepatitis C antibody test positive Current Visit: No Status: Chronic (5) Hypertension Current Visit: No Status: Chronic Qualifiers: Hypertension type: essential hypertension Qualified Code(s): I10 - Essential (primary) hypertension Breathalyzer - Breathalyzer Breathalyzer: 0 Urine Drug Screen - Test Device Lot number: [id number] Expiration date: 11/03/20 - Control Is test valid?: Yes - Results Drug screen NEGATIVE: No Urine drug screen results: INGRID-Cocaine, BZO-Benzodiazepines Inpatient Rehab Admission - Rehab Decision to Admit Inpatient rehab admission?: No
[2019-02-26] MEDS ORDERED: BISMUTH SUBSALICYLATE 524 MG/30 ML UD PO PRN (20:56)
[2019-02-26] MEDS ORDERED: ACETAMINOPHEN 325 MG TABLET (FP) PO PRN ×2 (20:56)
[2019-02-26] MEDS ORDERED: MAGNESIUM HYDROX 2400MG/30ML ORAL SUSPENSION 30 ML CUP PO PRN (20:56)
[2019-02-26] MEDS ORDERED: MAGNESIUM CITRATE 300 ML BOTTLE PO PRN (20:56)
[2019-02-26] MEDS ORDERED: IBUPROFEN 400 MG TABLET (FP) PO PRN (20:56)
[2019-02-26] MEDS ORDERED: MAG HYDROX/AL HYDROX/SIMETH 30 ML UNIT-DOSE CUP PO PRN (20:56)
[2019-02-26] MEDS ORDERED: chlordiazePOXIDE HCL 10 MG CAPSULE PO PRN (20:56)
[2019-02-26] MEDS ORDERED: MENTHOL/PHENOL 1 EACH UD MM PRN (20:56)
[2019-02-26] MEDS ORDERED: METHOCARBAMOL 500 MG TABLET PO PRN (20:56)
[2019-02-26] MEDS ORDERED: hydrOXYzine PAMOATE 25 MG CAPSULE (FP) PO PRN (20:56)
[2019-02-26] MEDS: chlordiazePOXIDE HCL 25 MG CAPSULE PO SCH (22:19)
[2019-02-26] MEDS: THIAMINE HCL 100 MG TABLET (FP) PO SCH (22:23)
[2019-02-27] MEDS: chlordiazePOXIDE HCL 25 MG CAPSULE PO SCH ×3 (05:48→21:16)
[2019-02-27] MEDS: TAMSULOSIN HCL 0.4 MG CAP PO SCH (08:49)
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
[2019-02-27 10:25] LABS: ALBUMIN 2.8 g/dl (3.4-5.0); BILIRUBIN,TOTAL 0.3 mg/dL (0.2-1); BLOOD UREA NITROGEN 28.9 mg/dL (7-18); CALCIUM 8.3 mg/dL (8.5-10.1); CREATININE 1.6 mg/dL (0.55-1.3); POTASSIUM 4.3 mmol/L (3.5-5.1); TOT PROT 5.8 g/dl (6.4-8.2)
[2019-02-27 10:45] LABS: HEMATOCRIT 28.4 % (35.4-49); HEMOGLOBIN 9.3 GM/dL (11.7-16.9); MCH 29.9 pg (25.7-33.7); MCHC 32.7 g/dl (32.0-35.9); MEAN CELL VOLUME 91.2 fl (80-96); MEAN PLT VOLUME 9.6 fl (7.5-11.1); PLATELET COUNT 263 K/MM3 (134-434); RBC 3.12 M/mm3 (4.00-5.60); RDW 14.4 % (11.9-15.9); WHITE BLOOD COUNT 5.5 K/mm3 (4.0-10.0)
[2019-02-27] MEDS: NIFEdipine E.R 60 MG TABLET (UD) PO SCH (10:57)
[2019-02-27] MEDS: SERTRALINE HCL 50 MG TABLET (FP) PO SCH (10:57)
[2019-02-27] MEDS: ASPIRIN 81 MG CHEWABLE TABLETS PO SCH (10:57)
[2019-02-27] MEDS: PRENATAL VITAMINS W/ FOLIC ACID TABLET (FP) PO SCH (10:57)
--- NOTE | 2019-02-27 16:26 | PN ---
S CIWA - CIWA Score Nausea/Vomitin-No Nausea/No Vomiting Muscle Tremors: 3 Anxiety: 3 Agitation: 2 Paroxysmal Sweats: No Perspiration Orientation: 0-Oriented Tacttile Disturbances: 1-Very Mild Itch/Numbness Auditory Disturbances: 0-None Visual Disturbances: 0-None Headache: 2-Mild CIWA-Ar Total Score: 11 S Progress Note (SOAP) Subjective: Body Aches, Anxious, Tremors. Objective: PATIENT A & O X 3, OBSERVED AMBULATING ON DETOX UNIT WITH ASSISTANCE OF A CANE. IN NO ACUTE DISTRESS. 02/27/19 16:22 Vital Signs Temperature 98.2 F 02/27/19 13:39 Pulse Rate 93 H 02/27/19 13:39 Respiratory Rate 18 02/27/19 13:39 Blood Pressure 105/65 02/27/19 13:39 O2 Sat by Pulse Oximetry (%) Laboratory Tests 02/27/19 02/27/19 02/27/19 08:15 08:15 08:15 WBC 5.5 RBC 3.12 L Hgb 9.3 L Hct 28.4 L D MCV 91.2 MCH 29.9 MCHC 32.7 RDW 14.4 Plt Count 263 D MPV 9.6 Sodium 143 Potassium 4.3 Chloride 108 H Carbon Dioxide 29 Anion Gap 6 L BUN 28.9 H Creatinine 1.6 H Est GFR (CKD-EPI)AfAm 54.23 Est GFR (CKD-EPI)NonAf 46.79 Random Glucose 113 H Calcium 8.3 L Total Bilirubin 0.3 AST 55 H ALT 63 H Alkaline Phosphatase 58 Total Protein 5.8 L Albumin 2.8 L RPR Titer Nonreactive LABS NOTED. Assessment: 02/27/19 16:22 WITHDRAWAL SYMPTOMS. ANEMIA. AZOTEMIA ELEVATED AST LEVEL. ELEVATED ALT LEVEL. 02/27/19 16:25 Plan: CONTINUE DETOX. INCREASE DAILY PO WATER INTAKE. REPEAT CBC TOMORROW AM FOR ANEMIA NOTED ON DETOX ADMISSION LABORATORY ASSESSMENT. PATIENT IS CURRENTLY RECEIVING DAILY MVI CONTAINING B VITAMINS AND IRON WHILE ADMITTED FOR DETOX.
[2019-02-27] MEDS: THIAMINE HCL 100 MG TABLET (FP) PO SCH (22:16)
[2019-02-28] MEDS: chlordiazePOXIDE 5 MG CAPSULE PO SCH ×3 (05:57→21:47)
[2019-02-28] MEDS: ASPIRIN 81 MG CHEWABLE TABLETS PO SCH (10:21)
[2019-02-28] MEDS: SERTRALINE HCL 50 MG TABLET (FP) PO SCH (10:21)
[2019-02-28] MEDS: TAMSULOSIN HCL 0.4 MG CAP PO SCH (10:22)
[2019-02-28] MEDS: PRENATAL VITAMINS W/ FOLIC ACID TABLET (FP) PO SCH (10:22)
[2019-02-28 11:23] LABS: EOS % 2.1 % (0-4.5); HEMOGLOBIN 10.1 GM/dL (11.7-16.9); LYMPH % 35.8 % (8-40); MCH 29.7 pg (25.7-33.7); MCHC 32.7 g/dl (32.0-35.9); MEAN CELL VOLUME 90.9 fl (80-96); MEAN PLT VOLUME 9.7 fl (7.5-11.1); MONO % 12.6 % (3.8-10.2); NEUT % 48.5 % (42.8-82.8); PLATELET COUNT 281 K/MM3 (134-434); RBC 3.41 M/mm3 (4.00-5.60); RDW 14.1 % (11.9-15.9); WHITE BLOOD COUNT 6.6 K/mm3 (4.0-10.0)
--- NOTE | 2019-02-28 11:37 | PN ---
S CIWA - CIWA Score Nausea/Vomitin-Mild Nausea/No Vomiting Muscle Tremors: 1-None Visible, but [place] Anxiety: 2 Agitation: 2 Paroxysmal Sweats: No Perspiration Orientation: 0-Oriented Tacttile Disturbances: 1-Very Mild Itch/Numbness Auditory Disturbances: 0-None Visual Disturbances: 0-None Headache: 1-Very Mild CIWA-Ar Total Score: 8 BHS Progress Note (SOAP) Subjective: alert,irritable,anxious,interrupted sleep,ambulation with cane without difficulty Objective: 02/28/19 11:36 Vital Signs Temperature 98.4 F 02/28/19 08:54 Pulse Rate 84 02/28/19 08:54 Respiratory Rate 18 02/28/19 08:54 Blood Pressure 131/80 02/28/19 08:54 O2 Sat by Pulse Oximetry (%) 02/28/19 11:36 repeat cbc pending Assessment: 02/28/19 11:36 withdrawal symptom Plan: continue detox librium regimen
[2019-02-28] MEDS: NIFEdipine E.R 60 MG TABLET (UD) PO SCH (12:05)
[2019-02-28] MEDS: ATORVASTATIN CA 20 MG TABLET (FP) PO SCH (21:48)
[2019-02-28] MEDS: THIAMINE HCL 100 MG TABLET (FP) PO SCH (21:48)
[2019-02-28] MEDS: MELATONIN 5 MG TABLETS PO PRN (21:48)
[2019-03-01] MEDS ORDERED: chlordiazePOXIDE HCL 10 MG CAPSULE PO PRN
[2019-03-01] MEDS: chlordiazePOXIDE HCL 10 MG CAPSULE PO SCH ×3 (06:32→22:27)
[2019-03-01] MEDS: TAMSULOSIN HCL 0.4 MG CAP PO SCH (08:33)
[2019-03-01] MEDS: NIFEdipine E.R 60 MG TABLET (UD) PO SCH (10:33)
[2019-03-01] MEDS: SERTRALINE HCL 50 MG TABLET (FP) PO SCH (10:33)
[2019-03-01] MEDS: ASPIRIN 81 MG CHEWABLE TABLETS PO SCH (10:33)
[2019-03-01] MEDS: guaiFENesin 200 MG/10 ML 10 ML UNIT-DOSE CUPS PO PRN (10:34)
[2019-03-01] MEDS: PRENATAL VITAMINS W/ FOLIC ACID TABLET (FP) PO SCH (10:34)
--- NOTE | 2019-03-01 13:08 | PN ---
[facility] CIWA - CIWA Score Nausea/Vomitin-Mild Nausea/No Vomiting Muscle Tremors: 1-None Visible, but [place] Anxiety: 2 Agitation: 2 Paroxysmal Sweats: No Perspiration Orientation: 0-Oriented Tacttile Disturbances: 1-Very Mild Itch/Numbness Auditory Disturbances: 0-None Visual Disturbances: 0-None Headache: 1-Very Mild CIWA-Ar Total Score: 8 BHS Progress Note (SOAP) Subjective: alert,irritable,anxious,interrupted sleep Objective: 03/01/19 13:07 Vital Signs Temperature 97.7 F 03/01/19 09:36 Pulse Rate 73 03/01/19 09:36 Respiratory Rate 18 03/01/19 09:36 Blood Pressure 109/73 03/01/19 09:36 O2 Sat by Pulse Oximetry (%) Assessment: 03/01/19 13:07 withdrawal symptom Plan: continue detox librium,discharge in am
[2019-03-01] MEDS: SIMETHICONE 80 MG TAB.CHEW (FP) PO PRN (14:01)
[2019-03-01] MEDS ORDERED: QUEtiapine FUMARATE 100 MG TABLET (FP) PO SCH (22:00)
[2019-03-01] MEDS: MELATONIN 5 MG TABLETS PO PRN (22:27)
[2019-03-01] MEDS: THIAMINE HCL 100 MG TABLET (FP) PO SCH (22:27)
[2019-03-01] MEDS: ATORVASTATIN CA 20 MG TABLET (FP) PO SCH (22:27)
[2019-03-02] MEDS ORDERED: chlordiazePOXIDE HCL 10 MG CAPSULE PO ONE (05:00)
[2019-03-02] MEDS: guaiFENesin 200 MG/10 ML 10 ML UNIT-DOSE CUPS PO PRN (07:32)
--- NOTE | 2019-03-02 08:31 | DS ---
[facility] Detox Discharge Summary Admission Date: 02/26/19 Discharge Date: 03/02/19 - History Present History: Alcohol Dependence, Opioid Dependence - Physical Exam Results Vital Signs: Vital Signs Temperature 97.9 F 03/02/19 06:00 Pulse Rate 66 03/02/19 06:00 Respiratory Rate 18 03/02/19 06:00 Blood Pressure 113/72 03/02/19 06:00 O2 Sat by Pulse Oximetry (%) Pertinent Admission Physical Exam Findings: pt arrived in withdrawals Laboratory Tests 02/27/19 02/27/19 02/27/19 08:15 08:15 08:15 WBC 5.5 RBC 3.12 L Hgb 9.3 L Hct 28.4 L D MCV 91.2 MCH 29.9 MCHC 32.7 RDW 14.4 Plt Count 263 D MPV 9.6 Absolute Neuts (auto) Neutrophils % Lymphocytes % Monocytes % Eosinophils % Basophils % Nucleated RBC % Sodium 143 Potassium 4.3 Chloride 108 H Carbon Dioxide 29 Anion Gap 6 L BUN 28.9 H Creatinine 1.6 H Est GFR (CKD-EPI)AfAm 54.23 Est GFR (CKD-EPI)NonAf 46.79 Random Glucose 113 H Calcium 8.3 L Total Bilirubin 0.3 AST 55 H ALT 63 H Alkaline Phosphatase 58 Total Protein 5.8 L Albumin 2.8 L RPR Titer Nonreactive 02/28/19 07:45 WBC 6.6 RBC 3.41 L Hgb 10.1 L Hct 31.0 L MCV 90.9 MCH 29.7 MCHC 32.7 RDW 14.1 Plt Count 281 MPV 9.7 Absolute Neuts (auto) 3.2 Neutrophils % 48.5 Lymphocytes % 35.8 Monocytes % 12.6 H Eosinophils % 2.1 Basophils % 1.0 Nucleated RBC % 0 Sodium Potassium Chloride Carbon Dioxide Anion Gap BUN Creatinine Est GFR (CKD-EPI)AfAm Est GFR (CKD-EPI)NonAf Random Glucose Calcium Total Bilirubin AST ALT Alkaline Phosphatase Total Protein Albumin RPR Titer pt is aaox3 ambulating no acute distress no s/s of withdrawals - Treatment Hospital Course: Detox Protocol Followed, Detoxed Safely, Responded well, Discharged Condition Good, Rehab Referral Accepted - Medication Discharge Medications: Ambulatory Orders Sertraline HCl [Zoloft -] 50 mg PO DAILY #30 tablet 08/24/16 Metoprolol Succinate [Toprol XL -] 50 mg PO DAILY #30 08/27/16 Nifedipine ER [Procardia XL -] 60 mg PO DAILY #30 08/27/16 Tamsulosin HCl [Flomax -] 0.4 mg PO DAILY #30 08/27/16 Amlodipine-Atorvast 10-20 mg 10 mg PO DAILY 02/26/19 Aspirin [ASA -] 81 mg PO DAILY 02/26/19 Folic Acid 1 mg PO DAILY 02/26/19 - Diagnosis (1) Opioid abuse Current Visit: Yes Status: Chronic (2) Positive PPD, treated Current Visit: Yes Status: Acute (3) Substance induced mood disorder Current Visit: Yes Status: Acute (4) Substance-induced sleep disorder Current Visit: Yes Status: Acute (5) Anemia Current Visit: Yes Status: Chronic Qualifiers: Anemia type: iron deficiency (6) Mood disorder Current Visit: Yes Status: Chronic (7) Bipolar II disorder Current Visit: Yes Status: Ruled-out (8) MDD (major depressive disorder) Current Visit: Yes Status: Ruled-out (9) Alcohol dependence with uncomplicated withdrawal Current Visit: Yes Status: Chronic (10) Drug-induced mood disorder Current Visit: No Status: Acute (11) Substance-induced sleep disorder Current Visit: No Status: Acute (12) Weight loss Current Visit: No Status: Acute (13) BPH (benign prostatic hyperplasia) Current Visit: Yes Status: Chronic Qualifiers: Lower urinary tract symptom presence: symptoms present (14) Cocaine dependence Current Visit: Yes Status: Chronic Qualifiers: Substance use status: uncomplicated Qualified Code(s): F14.20 - Cocaine dependence, uncomplicated (15) Depression Current Visit: No Status: Chronic Qualifiers: Depression Type: unspecified Qualified Code(s): F32.9 - Major depressive disorder, single episode, unspecified (16) Glaucoma Current Visit: No Status: Chronic Qualifiers: Glaucoma type: unspecified type Laterality: bilateral (17) Hepatitis C antibody test positive Current Visit: No Status: Chronic (18) Hypertension Current Visit: No Status: Chronic Qualifiers: Hypertension type: essential hypertension Qualified Code(s): I10 - Essential (primary) hypertension (19) Lower back pain Current Visit: No Status: Chronic - AMA Did Patient Leave Against Medical Advice: No
--- NOTE | 2019-03-02 11:43 | PN ---
NIR Progress Note Note: Patient approached at bedside because his name is on consult list for follow up. He told software writer:" I don't want to talk to you. They made a mistake yesterday "
[2019-03-02] MEDS: PRENATAL VITAMINS W/ FOLIC ACID TABLET (FP) PO SCH (11:51)
[2019-03-02] MEDS: SERTRALINE HCL 50 MG TABLET (FP) PO SCH (11:51)
[2019-03-02] MEDS: TAMSULOSIN HCL 0.4 MG CAP PO SCH (11:51)
[2019-03-02] MEDS: ASPIRIN 81 MG CHEWABLE TABLETS PO SCH (11:51)
[2019-03-02] MEDS: NIFEdipine E.R 60 MG TABLET (UD) PO SCH (11:52)
[2019-03-02] MEDS: SIMETHICONE 80 MG TAB.CHEW (FP) PO PRN (11:55)
[2019-03-02 12:41] VITALS: BP 123/80; PULSE 96; TEMP 98.1
== END 2019-03-02 12:51 | disposition home or self-care (01) | DRG 773 ==
LOC: YASAS 15:08 → Y6N 21:42
PROVIDERS: ADMIT Surgery; ATTEND Surgery
PROC: HZ2ZZZZ Detoxification Services for Substance Abuse Treatment (ICD-10-PCS; principal; 2019-02-26)
DX: F10.230 Alcohol dependence with withdrawal, uncomplicated (principal); F11.10 Opioid abuse, uncomplicated; F14.20 Cocaine dependence, uncomplicated; F17.210 Nicotine dependence, cigarettes, uncomplicated; F19.24 Other psychoactive substance dependence with psychoactive substance-induced mood disorder; F19.282 Other psychoactive substance dependence with psychoactive substance-induced sleep disorder; F39 Unspecified mood [affective] disorder; F31.81 Bipolar II disorder; I10 Essential (primary) hypertension; D50.9 Iron deficiency anemia, unspecified; R63.4 Abnormal weight loss; N40.0 Benign prostatic hyperplasia without lower urinary tract symptoms; H40.9 Unspecified glaucoma; B18.2 Chronic viral hepatitis C; M54.5 Low back pain; G89.29 Other chronic pain; R74.0 Nonspecific elevation of levels of transaminase and lactic acid dehydrogenase [LDH]; R79.89 Other specified abnormal findings of blood chemistry; R76.11 Nonspecific reaction to tuberculin skin test without active tuberculosis; Z91.5 Personal history of self-harm
CPT/HCPCS: 36415; 80053; 85025; 85027; 86593

== ENCOUNTER 2019-07-24 22:07 | Emergency (ER) | payer BC ==
[2019-07-24 22:17] VITALS: BP 126/88; PULSE 89; TEMP 98.3; BMI 16.9
--- NOTE | 2019-07-24 22:38 | PDOC ---
History of Present Illness - General Chief Complaint: Nausea/Vomiting Stated Complaint: VOMITING Time Seen by Provider: 07/24/19 22:37 - History of Present Illness Initial Comments: HPI: 58yo M with PMH of polysubstance abuse (ETOH, crack, cocaine, heroin), history of positive PPD s/p treatment sent by [facility] detox for evaluation of vomiting. Patient had one episode of vomiting four days ago that had a small amount of blood in it. Without acute complaints currently. Denies melena or hematochezia. No coughing, chest pain, shortness of breath. Denies fever or chills. ROS: Constitutional: no fever, no chills HEENT: no throat pain, no dysphagia Cardiovascular: no chest pain, no palpitations Respiratory: no cough, no shortness of breath Gastrointestinal: no abdominal pain, no nausea Genitourinary: no dysuria, no hematuria Musculoskeletal: no myalgia, no arthralgia Skin: no rash, no itching Neurologic: no headache, no weakness Psych: no agitation, no anxiety PE: General: Awake, alert, and fully oriented, in no acute distress Head: No signs of trauma Eyes: EOMI, sclera anicteric ENT: Moist mucus membranes Neck: Normal ROM, supple Lungs: Lungs clear, Normal breath sounds Cardio: Regular rhythm, S1 and S2 present Abdomen: Soft, nontender. No guarding, no rebound, no masses Extremities: Normal range of motion, Distal pulses present SKIN: Warm, Dry, normal turgor Neurologic: Cranial nerves II through XII grossly intact. 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 Not in acute withdrawal clinically Ambulating with steady gait Return precautions Patient discharged Past History - Past Medical History Allergies/Adverse Reactions: Allergies Allergy/AdvReac Type Severity Reaction Status Date / Time mushroom Allergy Verified 07/24/19 22:17 tomato Allergy Verified 07/24/19 22:17 Home Medications: Ambulatory Orders Sertraline HCl [Zoloft -] 50 mg PO DAILY #30 tablet 08/24/16 Metoprolol Succinate [Toprol XL -] 50 mg PO DAILY #30 08/27/16 Nifedipine ER [Procardia XL -] 60 mg PO DAILY #30 08/27/16 Tamsulosin HCl [Flomax -] 0.4 mg PO DAILY #30 08/27/16 Amlodipine-Atorvast 10-20 mg 10 mg PO DAILY 02/26/19 Aspirin [ASA -] 81 mg PO DAILY 02/26/19 Folic Acid 1 mg PO DAILY 02/26/19 Anemia: Yes (Not on medication ) Asthma: No Cancer: No Cardiac Disorders: No CVA: No COPD: No CHF: No Dementia: No Diabetes: No GI Disorders: No Disorders: Yes (BPH - Tamsulosin) HTN: Yes (Nifedipine, Metoprolol) Hypercholesterolemia: No Kidney Stones: No Liver Disease: Yes (Hep C) Seizures: No Thyroid Disease: No - Surgical History Orthopedic Surgery: Yes (Fx lt ankle 01/2012) - Reproductive History Testicular Surgery: No - Psycho Social/Smoking Cessation Hx Smoking History: Current every day smoker Have you smoked in the past 12 months: Yes Number of Cigarettes Smoked Daily: 14 Cigars Per Day: 0 Information on smoking cessation initiated: No 'Breaking Loose' booklet given: 02/26/19 Hx Alcohol Use: Yes (alcohol) Drug/Substance Use Hx: Yes (crack, cocaine) Substance Use Type: Alcohol, Cocaine Hx Substance Use Treatment: Yes *Physical Exam - Vital Signs Last Vital Signs Temp Pulse Resp BP Pulse Ox 98.3 F 89 18 126/88 100 07/24/19 22:12 07/24/19 22:12 07/24/19 22:12 07/24/19 22:12 07/24/19 22:12 Discharge - Discharge Information Problems reviewed: Yes Clinical Impression/Diagnosis: Vomiting Qualifiers: Vomiting type: unspecified Vomiting Intractability: non-intractable Nausea presence: without nausea Qualified Code(s): R11.11 - Vomiting without nausea Condition: Stable Disposition: HOME - Follow up/Referral Referrals: ON STAFF,NOT [Primary Care Provider] - - Patient Discharge Instructions Additional Instructions: Immediate medical attention is required if have: chest pain, palpitations, shortness of breath, severe headaches, changes in vision, focal numbness or weakness, severe abdominal pain, black tarry stool, or any new or concerning symptoms. If you think you are having an emergency, call for emergency medical services or present to the emergency department right away. - Post Discharge Activity
--- NOTE | 2019-07-24 23:28 | PDOC ---
Documentation entered by Myriam Hurtado SCRIBE, acting as scribe for Annie Freeman MD. Annie Freeman MD: This documentation has been prepared by the Bryant davis Nirvannie, SCRIBE, under my direction and personally reviewed by me in its entirety. I confirm that the documentation accurately reflects all work, treatment, procedures, and medical decision making performed by me. Attending Attestation - Resident Resident Name: Melanie Hurt - ED Attending Attestation I have performed the following: I have examined & evaluated the patient, The case was reviewed & discussed with the resident, I agree w/resident's findings & plan, Exceptions are as noted - HPI HPI: 07/24/19 23:25 58-year-old male coming from [facility] detox because he had an episode of bloody vomiting or hemoptysis several days ago. 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
== END 2019-07-24 23:45 | disposition home or self-care (01) ==
LOC: SUPCPDRO 22:07 → JER 22:07
DX: R11.11 Vomiting without nausea (principal); I10 Essential (primary) hypertension; D64.9 Anemia, unspecified; N40.0 Benign prostatic hyperplasia without lower urinary tract symptoms; B18.2 Chronic viral hepatitis C; F17.210 Nicotine dependence, cigarettes, uncomplicated; F10.10 Alcohol abuse, uncomplicated; F14.10 Cocaine abuse, uncomplicated
CPT/HCPCS: 99281-25

== ENCOUNTER 2021-12-24 18:37 | Inpatient (IN) | payer BC ==
[2021-12-24 21:23] VITALS: BMI 18.3
[2021-12-24] MEDS ORDERED: IBUPROFEN 600 MG TABLET (FP) PO PRN (22:03)
[2021-12-24] MEDS ORDERED: DICYCLOMINE HCL 10 MG CAPSULE PO PRN (22:03)
[2021-12-24] MEDS ORDERED: IBUPROFEN 400 MG TABLET (FP) PO PRN (22:03)
[2021-12-24] MEDS ORDERED: MAGNESIUM CITRATE 300 ML BOTTLE PO PRN (22:03)
[2021-12-24] MEDS ORDERED: METHOCARBAMOL 500 MG TABLET PO PRN (22:03)
[2021-12-24] MEDS ORDERED: BISMUTH SUBSALICYLATE 524 MG/30 ML PO PRN (22:03)
[2021-12-24] MEDS ORDERED: MELATONIN 5 MG TABLETS PO PRN (22:03)
[2021-12-24] MEDS ORDERED: hydrOXYzine PAMOATE 25 MG CAPSULE (FP) PO PRN (22:03)
[2021-12-24] MEDS ORDERED: MAG HYDROX/AL HYDROX/SIMETH 30 ML UNIT-DOSE CUP PO PRN (22:03)
[2021-12-24] MEDS ORDERED: LOPERAMIDE HCL 2 MG CAPSULE PO PRN (22:03)
[2021-12-24] MEDS ORDERED: ONDANSETRON *ODT* 4 MG TABLET SL PRN (22:03)
[2021-12-24] MEDS ORDERED: NICOTINE POLACRILEX 2 MG GUM BUC PRN (22:03)
[2021-12-24] MEDS ORDERED: MAGNESIUM HYDROX 2400MG/30ML ORAL SUSPENSION 30 ML CUP PO PRN (22:03)
[2021-12-24] MEDS ORDERED: ACETAMINOPHEN 325 MG TABLET (FP) PO PRN ×2 (22:03)
[2021-12-24] MEDS ORDERED: NICOTINE 10 MG CARTRIDGE (INHALER) IH PRN (22:03)
[2021-12-24] MEDS ORDERED: BENZOCAINE/MENTHOL (CHLORASEPTIC ) LOZENGE MM PRN (22:03)
[2021-12-24] MEDS: amLODIPine BESYLATE 10 MG TABLET (FP) PO SCH (23:52)
[2021-12-24] MEDS: ASPIRIN 81 MG CHEWABLE TABLETS PO SCH (23:52)
[2021-12-25] MEDS: FOLIC ACID 1 MG TABLET (FP) PO SCH (10:53)
[2021-12-25] MEDS: PRENATAL VITAMINS W/ FOLIC ACID TABLET (FP) PO SCH (10:53)
[2021-12-25] MEDS: amLODIPine BESYLATE 10 MG TABLET (FP) PO SCH (10:53)
[2021-12-25] MEDS: ASPIRIN 81 MG CHEWABLE TABLETS PO SCH (10:53)
[2021-12-25 12:25] LABS: HEMATOCRIT 34.3 % (35.4-49); HEMOGLOBIN 11.1 GM/dL (11.7-16.9); MCH 29.4 pg (25.7-33.7); MCHC 32.2 g/dl (32.0-35.9); MEAN CELL VOLUME 91.3 fl (80-96); MEAN PLT VOLUME 9.6 fl (7.5-11.1); PLATELET COUNT 212 10^3/uL (134-434); RBC 3.76 M/mm3 (4.00-5.60); RDW 13.7 % (11.9-15.9); WHITE BLOOD COUNT 5.5 K/mm3 (4.0-10.0)
[2021-12-25 12:45] LABS: CALCIUM 8.8 mg/dL (8.5-10.1)
[2021-12-25 12:46] LABS: BLOOD UREA NITROGEN 23.2 mg/dL (7-18)
[2021-12-25 12:49] LABS: CREATININE 1.4 mg/dL (0.55-1.3)
[2021-12-25 12:50] LABS: BILIRUBIN,TOTAL 0.2 mg/dL (0.2-1); TOT PROT 6.6 g/dl (6.4-8.2)
[2021-12-25] MEDS ORDERED: LATANOPROST 0.005% OPHTH SOLN 2.5ML BOTTLE OU SCH (22:00)
[2021-12-25] MEDS ORDERED: THIAMINE HCL 100 MG TABLET (FP) PO SCH (22:00)
[2021-12-26 08:52] VITALS: RESP 18
[2021-12-26] MEDS: PRENATAL VITAMINS W/ FOLIC ACID TABLET (FP) PO SCH (10:48)
[2021-12-26] MEDS: ASPIRIN 81 MG CHEWABLE TABLETS PO SCH (10:48)
[2021-12-26] MEDS: FOLIC ACID 1 MG TABLET (FP) PO SCH (10:48)
[2021-12-26] MEDS: amLODIPine BESYLATE 10 MG TABLET (FP) PO SCH (10:48)
[2021-12-26 13:00] VITALS: BP 153/102; PULSE 75; TEMP 97.8
== END 2021-12-26 13:45 | disposition home or self-care (01) | DRG 774 ==
LOC: YASAS 18:37 → Y3N 22:07
PROVIDERS: ADMIT Allergy & Immunology; ATTEND Surgery
PROC: HZ2ZZZZ Detoxification Services for Substance Abuse Treatment (ICD-10-PCS; principal; 2021-12-24)
DX: F10.230 Alcohol dependence with withdrawal, uncomplicated (principal); F14.20 Cocaine dependence, uncomplicated; F12.10 Cannabis abuse, uncomplicated; F17.210 Nicotine dependence, cigarettes, uncomplicated; B18.2 Chronic viral hepatitis C; I10 Essential (primary) hypertension; H40.9 Unspecified glaucoma; Z91.018 Allergy to other foods
CPT/HCPCS: 36415; 80053; 85027; 86780; C9803-CS; U0003; U0005

== ENCOUNTER 2022-11-25 13:51 | Emergency (ER) | payer BC ==
[2022-11-25 14:08] VITALS: PULSE 97; RESP 18; TEMP 98.1; BMI 17.6
[2022-11-25] MEDS ORDERED: SODIUM CHLORIDE 1,000 ML IV STA (14:42)
[2022-11-25 15:23] LABS: BASO % 0.5 % (0-2.0); EOS % 0.4 % (0-4.5); HEMATOCRIT 38.4 % (35.4-49); HEMOGLOBIN 12.4 GM/dL (11.7-16.9); MCH 29.7 pg (25.7-33.7); MCHC 32.4 g/dl (32.0-35.9); MEAN CELL VOLUME 91.7 fl (80-96); MEAN PLT VOLUME 8.4 fl (7.5-11.1); MONO % 11.4 % (3.8-10.2); NEUT % 79.7 % (42.8-82.8); PLATELET COUNT 278 10^3/uL (134-434); RBC 4.19 M/mm3 (4.00-5.60); RDW 15.3 % (11.9-15.9); WHITE BLOOD COUNT 12.7 K/mm3 (4.0-10.0)
[2022-11-25 15:29] LABS: INR 0.93 (0.83-1.09); PROTHROMBIN TIME (PATIENT) 10.8 SEC (9.7-13.0)
[2022-11-25 15:31] LABS: ACTIVATED PTT 27.9 SECONDS (25.2-36.5)
[2022-11-25 15:35] LABS: POTASSIUM 4.3 mmol/L (3.5-5.1)
[2022-11-25 15:37] LABS: ALBUMIN 3.7 g/dl (3.4-5.0); CALCIUM 9.6 mg/dL (8.5-10.1); MAGNESIUM 2.2 mg/dL (1.8-2.4)
[2022-11-25 15:38] LABS: BLOOD UREA NITROGEN 26.4 mg/dL (7-18)
[2022-11-25 15:40] LABS: CREATININE 1.7 mg/dL (0.55-1.3); PHOSPHOROUS 2.5 mg/dL (2.5-4.9)
[2022-11-25 15:42] LABS: BILIRUBIN,TOTAL 0.3 mg/dL (0.2-1); TOT PROT 8.2 g/dl (6.4-8.2)
[2022-11-25 20:01] VITALS: BP 142/92
[2022-11-25 20:25] LABS: METHADONE, UR NEGATIVE (NEGATIVE); PHENCYCLIDINE,URINE NEGATIVE (NEGATIVE); URINE AMPHETAMINES NEGATIVE (NEGATIVE)
[2022-11-25 20:26] LABS: OPIATES, URI NEGATIVE (NEGATIVE); URINE BARBITURATES NEGATIVE (NEGATIVE)
[2022-11-25 20:32] LABS: COCAINE, UR POSITIVE (NEGATIVE); URINE BENZODIAZEPINES POSITIVE (NEGATIVE)
== END 2022-11-25 20:21 | disposition home or self-care (01) ==
LOC: JER 13:51
PROC: 3E0337Z Introduction of Electrolytic and Water Balance Substance into Peripheral Vein, Percutaneous Approach (ICD-10-PCS; principal; 2022-11-25)
DX: R53.1 Weakness (principal); F10.20 Alcohol dependence, uncomplicated; F19.10 Other psychoactive substance abuse, uncomplicated; M79.671 Pain in right foot; M79.672 Pain in left foot; R11.10 Vomiting, unspecified; Y90.6 Blood alcohol level of 120-199 mg/100 ml
CPT/HCPCS: 36415; 71045-TC-FY; 80053; 80307; 83690; 83735; 84100; 84484; 85025; 85610; 85730; 87086; 93005; 93010; 99285-25

== ENCOUNTER 2022-11-25 20:32 | Inpatient (IN) | payer BC ==
[2022-11-26] MEDS ORDERED: DICYCLOMINE HCL 10 MG CAPSULE PO PRN (09:07)
[2022-11-26] MEDS ORDERED: LOPERAMIDE HCL 2 MG CAPSULE PO PRN (09:07)
[2022-11-26] MEDS ORDERED: MAG HYDROX/AL HYDROX/SIMETH 30 ML UNIT-DOSE CUP PO PRN (09:07)
[2022-11-26] MEDS ORDERED: ONDANSETRON *ODT* 4 MG TABLET SL PRN (09:07)
[2022-11-26] MEDS ORDERED: NICOTINE POLACRILEX 2 MG GUM BUC PRN (09:07)
[2022-11-26] MEDS ORDERED: COLLOIDAL OATMEAL 1 BAR EACH TP PRN (09:07)
[2022-11-26] MEDS ORDERED: guaiFENesin 600 MG TABLET.ER (FP) PO PRN (09:07)
[2022-11-26] MEDS ORDERED: IBUPROFEN 400 MG TABLET (FP) PO PRN (09:07)
[2022-11-26] MEDS ORDERED: NICOTINE 10 MG CARTRIDGE (INHALER) IH PRN (09:07)
[2022-11-26] MEDS ORDERED: IBUPROFEN 600 MG TABLET (FP) PO PRN (09:07)
[2022-11-26] MEDS ORDERED: MAGNESIUM HYDROX 2400MG/30ML ORAL SUSPENSION 30 ML CUP PO PRN (09:07)
[2022-11-26] MEDS ORDERED: BENZONATATE 200 MG CAPSULE PO PRN (09:07)
[2022-11-26] MEDS ORDERED: NALOXONE HCL (KLOXXADO) 8 MG SPRAY NS PRN (09:07)
[2022-11-26] MEDS ORDERED: NALOXONE HCL 0.4 MG/ML VIAL IM PRN (09:07)
[2022-11-26] MEDS ORDERED: BENZOCAINE/MENTHOL (CHLORASEPTIC ) LOZENGE MM PRN (09:07)
[2022-11-26] MEDS ORDERED: POLYETHYLENE GLYCOL (HEALTHYLAX) 3350 17 GM PACKET PO PRN (09:07)
[2022-11-26] MEDS ORDERED: BISMUTH SUBSALICYLATE 524 MG/30 ML PO PRN (09:07)
[2022-11-26] MEDS ORDERED: ACETAMINOPHEN 325 MG TABLET (FP) PO PRN (09:07)
[2022-11-26] MEDS ORDERED: AMMONIUM LACTATE 12% LOTION 225 GM BOTTLE TP PRN (09:07)
[2022-11-26] MEDS ORDERED: chlordiazePOXIDE HCL 25 MG CAPSULE ONE (10:31)
[2022-11-26] MEDS ORDERED: amLODIPine BESYLATE 5 MG TABLET (FP) ONE (10:32)
[2022-11-26] MEDS ORDERED: PRENATAL VITAMINS W/ FOLIC ACID TABLET (FP) PO ONE (10:32)
[2022-11-26] MEDS ORDERED: ASPIRIN 81 MG CHEWABLE TABLETS ONE (10:32)
[2022-11-26] MEDS: PRENATAL VITAMINS W/ FOLIC ACID TABLET (FP) PO SCH (10:33)
[2022-11-26] MEDS: chlordiazePOXIDE HCL 25 MG CAPSULE PO SCH ×3 (10:33→22:36)
[2022-11-26] MEDS: amLODIPine BESYLATE 10 MG TABLET (FP) PO SCH (10:33)
[2022-11-26] MEDS: ASPIRIN 81 MG CHEWABLE TABLETS PO SCH (10:33)
[2022-11-26] MEDS ORDERED: cloNIDine HCL 0.1 MG TABLET PO ONE (12:21)
[2022-11-26] MEDS: METHOCARBAMOL 500 MG TABLET PO PRN (14:03)
[2022-11-26 14:32] LABS: HEMATOCRIT 29.7 % (35.4-49); HEMOGLOBIN 9.5 GM/dL (11.7-16.9); MCH 30.1 pg (25.7-33.7); MEAN CELL VOLUME 94.2 fl (80-96); MEAN PLT VOLUME 9.4 fl (7.5-11.1); PLATELET COUNT 210 10^3/uL (134-434); RBC 3.16 M/mm3 (4.00-5.60); RDW 14.9 % (11.9-15.9); WHITE BLOOD COUNT 8.3 K/mm3 (4.0-10.0)
[2022-11-26 14:41] LABS: POTASSIUM 3.8 mmol/L (3.5-5.1)
[2022-11-26 14:59] LABS: BLOOD UREA NITROGEN 27.6 mg/dL (7-18); CALCIUM 8.8 mg/dL (8.5-10.1)
[2022-11-26 15:02] LABS: CREATININE 1.4 mg/dL (0.55-1.3)
[2022-11-26 15:04] LABS: BILIRUBIN,TOTAL 0.3 mg/dL (0.2-1)
[2022-11-26 15:27] LABS: ALBUMIN 2.8 g/dl (3.4-5.0); TOT PROT 6.1 g/dl (6.4-8.2)
[2022-11-26 15:36] LABS: HIV INTERPRETATION NEGATIVE (NEGATIVE)
[2022-11-26] MEDS: LATANOPROST 0.005% OPHTH SOLN 2.5ML BOTTLE OU SCH (22:36)
[2022-11-26] MEDS: THIAMINE HCL 100 MG TABLET (FP) PO SCH (22:36)
[2022-11-26] MEDS: MELATONIN 5 MG TABLETS PO SCH (22:36)
[2022-11-26] MEDS: TAMSULOSIN HCL 0.4 MG CAP PO SCH (22:36)
[2022-11-27] MEDS: chlordiazePOXIDE HCL 25 MG CAPSULE PO SCH ×4 (05:23→22:04)
[2022-11-27] MEDS: amLODIPine BESYLATE 10 MG TABLET (FP) PO SCH (10:13)
[2022-11-27] MEDS: PRENATAL VITAMINS W/ FOLIC ACID TABLET (FP) PO SCH (10:13)
[2022-11-27] MEDS: METHOCARBAMOL 500 MG TABLET PO PRN (10:13)
[2022-11-27] MEDS: ASPIRIN 81 MG CHEWABLE TABLETS PO SCH (10:13)
[2022-11-27] MEDS: THIAMINE HCL 100 MG TABLET (FP) PO SCH (22:04)
[2022-11-27] MEDS: MELATONIN 5 MG TABLETS PO SCH (22:04)
[2022-11-27] MEDS: TAMSULOSIN HCL 0.4 MG CAP PO SCH (22:04)
[2022-11-27] MEDS: LATANOPROST 0.005% OPHTH SOLN 2.5ML BOTTLE OU SCH (22:05)
[2022-11-28] MEDS: chlordiazePOXIDE HCL 25 MG CAPSULE PO SCH ×4 (05:48→22:17)
[2022-11-28] MEDS: LACTULOSE 20 GM/30 ML UDC (FOR ORAL USE ONLY) PO SCH ×4 (10:52→22:17)
[2022-11-28] MEDS: PRENATAL VITAMINS W/ FOLIC ACID TABLET (FP) PO SCH (10:52)
[2022-11-28] MEDS: ASPIRIN 81 MG CHEWABLE TABLETS PO SCH (10:52)
[2022-11-28] MEDS: amLODIPine BESYLATE 10 MG TABLET (FP) PO SCH (10:52)
[2022-11-28] MEDS: FERROUS SO4 325 MG TABLET (FP) PO SCH ×2 (12:46→17:39)
[2022-11-28] MEDS ORDERED: cloNIDine HCL 0.1 MG TABLET PO PRN (14:11)
[2022-11-28] MEDS: LATANOPROST 0.005% OPHTH SOLN 2.5ML BOTTLE OU SCH (22:17)
[2022-11-28] MEDS: MELATONIN 5 MG TABLETS PO SCH (22:17)
[2022-11-28] MEDS: THIAMINE HCL 100 MG TABLET (FP) PO SCH (22:17)
[2022-11-28] MEDS: TAMSULOSIN HCL 0.4 MG CAP PO SCH (22:17)
[2022-11-29] MEDS: chlordiazePOXIDE HCL 10 MG CAPSULE PO SCH ×4 (05:47→22:29)
[2022-11-29] MEDS: FERROUS SO4 325 MG TABLET (FP) PO SCH ×3 (07:10→17:39)
[2022-11-29] MEDS: LACTULOSE 20 GM/30 ML UDC (FOR ORAL USE ONLY) PO SCH ×4 (10:43→22:30)
[2022-11-29] MEDS: PRENATAL VITAMINS W/ FOLIC ACID TABLET (FP) PO SCH (10:43)
[2022-11-29] MEDS: ASPIRIN 81 MG CHEWABLE TABLETS PO SCH (10:44)
[2022-11-29] MEDS: amLODIPine BESYLATE 10 MG TABLET (FP) PO SCH (10:44)
[2022-11-29] MEDS: TAMSULOSIN HCL 0.4 MG CAP PO SCH (22:29)
[2022-11-29] MEDS: THIAMINE HCL 100 MG TABLET (FP) PO SCH (22:29)
[2022-11-29] MEDS: MELATONIN 5 MG TABLETS PO SCH (22:31)
[2022-11-29] MEDS: LATANOPROST 0.005% OPHTH SOLN 2.5ML BOTTLE OU SCH (22:34)
[2022-11-30] MEDS ORDERED: chlordiazePOXIDE HCL 10 MG CAPSULE PO SCH (05:00)
[2022-11-30] MEDS: FERROUS SO4 325 MG TABLET (FP) PO SCH (08:00)
[2022-11-30 09:26] VITALS: PULSE 102
[2022-11-30] MEDS: PRENATAL VITAMINS W/ FOLIC ACID TABLET (FP) PO SCH (10:42)
[2022-11-30] MEDS: METHOCARBAMOL 500 MG TABLET PO PRN (10:42)
[2022-11-30] MEDS: amLODIPine BESYLATE 10 MG TABLET (FP) PO SCH (10:42)
[2022-11-30] MEDS: ASPIRIN 81 MG CHEWABLE TABLETS PO SCH (10:43)
[2022-11-30] MEDS: LACTULOSE 20 GM/30 ML UDC (FOR ORAL USE ONLY) PO SCH ×2 (10:45→13:39)
[2022-11-30 13:20] VITALS: BP 131/83; RESP 18; TEMP 97.1
[2022-11-30] MEDS ORDERED: DOCUSATE SODIUM 100 MG CAPSULE (FP) PO SCH (14:00)
[2022-12-01] MEDS ORDERED: chlordiazePOXIDE HCL 10 MG CAPSULE PO ONE (05:00)
== END 2022-11-30 13:55 | disposition home or self-care (01) | DRG 774 ==
LOC: YASAS 20:32 → Y6N 11-26 09:15
PROVIDERS: ADMIT Allergy & Immunology; ATTEND Surgery
PROC: HZ2ZZZZ Detoxification Services for Substance Abuse Treatment (ICD-10-PCS; principal; 2022-11-26)
DX: F10.230 Alcohol dependence with withdrawal, uncomplicated (principal); F14.20 Cocaine dependence, uncomplicated; F12.20 Cannabis dependence, uncomplicated; F17.210 Nicotine dependence, cigarettes, uncomplicated; F19.24 Other psychoactive substance dependence with psychoactive substance-induced mood disorder; E72.20 Disorder of urea cycle metabolism, unspecified; D50.9 Iron deficiency anemia, unspecified; H40.9 Unspecified glaucoma; I10 Essential (primary) hypertension; J44.9 Chronic obstructive pulmonary disease, unspecified; N40.0 Benign prostatic hyperplasia without lower urinary tract symptoms; R63.4 Abnormal weight loss; Z68.1 Body mass index [BMI] 19.9 or less, adult; Z86.11 Personal history of tuberculosis; Z99.89 Dependence on other enabling machines and devices; Z86.19 Personal history of other infectious and parasitic diseases
CPT/HCPCS: 26055; 36415; 80053; 82140; 83036; 84520; 85027; 86780; 87389; 87635

== ENCOUNTER 2023-04-15 19:28 | Inpatient (IN) | payer BC ==
[2023-04-15 21:54] VITALS: BMI 16.7
[2023-04-15] MEDS ORDERED: ACETAMINOPHEN 325 MG TABLET (FP) PO PRN (22:10)
[2023-04-15] MEDS ORDERED: BENZONATATE 200 MG CAPSULE PO PRN (22:10)
[2023-04-15] MEDS ORDERED: NICOTINE POLACRILEX 4 MG GUM BUC PRN (22:10)
[2023-04-15] MEDS ORDERED: ONDANSETRON *ODT* 4 MG TABLET SL PRN (22:10)
[2023-04-15] MEDS ORDERED: MAGNESIUM HYDROX 2400MG/30ML ORAL SUSPENSION 30 ML CUP PO PRN (22:10)
[2023-04-15] MEDS ORDERED: BISMUTH SUBSALICYLATE 524 MG/30 ML PO PRN (22:10)
[2023-04-15] MEDS ORDERED: guaiFENesin 600 MG TABLET.ER (FP) PO PRN (22:10)
[2023-04-15] MEDS ORDERED: NALOXONE HCL 0.4 MG/ML VIAL IM PRN (22:10)
[2023-04-15] MEDS ORDERED: DICYCLOMINE HCL 10 MG CAPSULE PO PRN (22:10)
[2023-04-15] MEDS ORDERED: LOPERAMIDE HCL 2 MG CAPSULE PO PRN (22:10)
[2023-04-15] MEDS ORDERED: POLYETHYLENE GLYCOL (HEALTHYLAX) 3350 17 GM PACKET PO PRN (22:10)
[2023-04-15] MEDS ORDERED: LORazepam 1 MG TABLET PO PRN (22:10)
[2023-04-15] MEDS ORDERED: MAG HYDROX/AL HYDROX/SIMETH 30 ML UNIT-DOSE CUP PO PRN (22:10)
[2023-04-15] MEDS ORDERED: BENZOCAINE/MENTHOL (CHLORASEPTIC ) LOZENGE MM PRN (22:10)
[2023-04-15] MEDS ORDERED: NALOXONE HCL (KLOXXADO) 8 MG SPRAY NS PRN (22:10)
[2023-04-15] MEDS ORDERED: amLODIPine BESYLATE 5 MG TABLET (FP) ONE (22:18)
[2023-04-15] MEDS: amLODIPine BESYLATE 10 MG TABLET (FP) PO SCH (22:28)
[2023-04-15] MEDS ORDERED: LORazepam 2 MG TABLET ONE (23:22)
[2023-04-15] MEDS: LORazepam 2 MG TABLET PO SCH (23:24)
[2023-04-16] MEDS: LORazepam 2 MG TABLET PO SCH ×4 (05:34→22:30)
[2023-04-16] MEDS: TAMSULOSIN HCL 0.4 MG CAP PO SCH (09:15)
[2023-04-16] MEDS: PRENATAL VITAMINS W/ FOLIC ACID TABLET (FP) PO SCH (10:08)
[2023-04-16] MEDS: amLODIPine BESYLATE 10 MG TABLET (FP) PO SCH (10:09)
[2023-04-16] MEDS: NICOTINE 14 MG/24 HOURS TOPICAL PATCH TD SCH (10:09)
[2023-04-16] MEDS: ASPIRIN 81 MG CHEWABLE TABLETS PO SCH (10:09)
[2023-04-16] MEDS ORDERED: FLU VACCINE (FLULAVAL) PF 60 MCG/0.5 ML SYRINGE 2023-2024 IM ONE (12:00)
[2023-04-16 16:02] LABS: CHLORIDE 109 mmol/L (98-107); POTASSIUM 4.1 mmol/L (3.5-5.1); SODIUM 143 mmol/L (136-145)
[2023-04-16 16:09] LABS: HEMATOCRIT 34.8 % (35.4-49); HEMOGLOBIN 11.2 GM/dL (11.7-16.9); MCH 28.9 pg (25.7-33.7); MCHC 32.2 g/dl (32.0-35.9); MEAN CELL VOLUME 89.9 fl (80-96); MEAN PLT VOLUME 9.5 fl (7.5-11.1); PLATELET COUNT 219 10^3/uL (134-434); RBC 3.88 M/mm3 (4.00-5.60); RDW 14.8 % (11.9-15.9); WHITE BLOOD COUNT 5.1 K/mm3 (4.0-10.0)
[2023-04-16 16:16] LABS: ALBUMIN 3.2 g/dl (3.4-5.0); ANION GAP 8 mmol/L (4-13); BLOOD UREA NITROGEN 31.9 mg/dL (7-18); CO2 27 mmol/L (21-32); GLUCOSE,RANDOM 193 mg/dL (74-106)
[2023-04-16 16:19] LABS: CREATININE 1.6 mg/dL (0.55-1.3); SGOT/AST 44 U/L (15-37); SGPT/ALT 49 U/L (13-61)
[2023-04-16 16:21] LABS: BILIRUBIN,TOTAL 0.4 mg/dL (0.2-1)
[2023-04-16 16:22] LABS: ALK PHOS 62 U/L (45-117)
[2023-04-16] MEDS: MELATONIN 5 MG TABLETS PO SCH (22:31)
[2023-04-16] MEDS: THIAMINE HCL 100 MG TABLET (FP) PO SCH (22:31)
[2023-04-17] MEDS: LORazepam 1 MG TABLET PO SCH ×4 (05:17→22:26)
[2023-04-17] MEDS: ASPIRIN 81 MG CHEWABLE TABLETS PO SCH (10:37)
[2023-04-17] MEDS: TAMSULOSIN HCL 0.4 MG CAP PO SCH (10:37)
[2023-04-17] MEDS: PRENATAL VITAMINS W/ FOLIC ACID TABLET (FP) PO SCH (10:38)
[2023-04-17] MEDS: NICOTINE 14 MG/24 HOURS TOPICAL PATCH TD SCH (10:38)
[2023-04-17] MEDS: amLODIPine BESYLATE 10 MG TABLET (FP) PO SCH (10:38)
[2023-04-17] MEDS ORDERED: cloNIDine HCL 0.1 MG TABLET PO ONE (17:45)
[2023-04-17] MEDS: THIAMINE HCL 100 MG TABLET (FP) PO SCH (22:26)
[2023-04-17] MEDS: MELATONIN 5 MG TABLETS PO SCH (22:26)
[2023-04-18] MEDS ORDERED: LORazepam 0.5 MG TABLET PO PRN
[2023-04-18] MEDS: LORazepam 0.5 MG TABLET PO SCH ×4 (05:32→22:16)
[2023-04-18] MEDS: TAMSULOSIN HCL 0.4 MG CAP PO SCH (09:13)
[2023-04-18] MEDS: amLODIPine BESYLATE 10 MG TABLET (FP) PO SCH (09:13)
[2023-04-18] MEDS: ASPIRIN 81 MG CHEWABLE TABLETS PO SCH (09:13)
[2023-04-18] MEDS: PRENATAL VITAMINS W/ FOLIC ACID TABLET (FP) PO SCH (09:14)
[2023-04-18] MEDS: NICOTINE 14 MG/24 HOURS TOPICAL PATCH TD SCH (09:14)
[2023-04-18 11:17] LABS: POTASSIUM 3.9 mmol/L (3.5-5.1)
[2023-04-18 11:34] LABS: CALCIUM 8.7 mg/dL (8.5-10.1)
[2023-04-18 11:35] LABS: BLOOD UREA NITROGEN 20.6 mg/dL (7-18)
[2023-04-18 11:38] LABS: CREATININE 1.4 mg/dL (0.55-1.3)
[2023-04-18] MEDS ORDERED: LISINOPRIL 5 MG TABLET PO ONE (21:24)
[2023-04-18] MEDS: THIAMINE HCL 100 MG TABLET (FP) PO SCH (22:16)
[2023-04-18] MEDS: MELATONIN 5 MG TABLETS PO SCH (22:16)
[2023-04-19] MEDS ORDERED: LORazepam 0.5 MG TABLET PO ONE (05:00)
[2023-04-19 09:21] VITALS: RESP 16
[2023-04-19] MEDS: amLODIPine BESYLATE 10 MG TABLET (FP) PO SCH (09:22)
[2023-04-19] MEDS: NICOTINE 14 MG/24 HOURS TOPICAL PATCH TD SCH (09:22)
[2023-04-19] MEDS: ASPIRIN 81 MG CHEWABLE TABLETS PO SCH (09:22)
[2023-04-19] MEDS: TAMSULOSIN HCL 0.4 MG CAP PO SCH (09:22)
[2023-04-19] MEDS: PRENATAL VITAMINS W/ FOLIC ACID TABLET (FP) PO SCH (09:23)
[2023-04-19 12:56] VITALS: BP 109/65; PULSE 85; TEMP 98.4
[2023-04-19] MEDS ORDERED: LATANOPROST 0.005% OPHTH SOLN 2.5ML BOTTLE OU SCH (22:00)
== END 2023-04-19 13:27 | disposition other institution (70) | DRG 774 ==
LOC: YASAS 19:28 → Y3N 23:32
PROVIDERS: ADMIT Allergy & Immunology; ATTEND Surgery
PROC: HZ2ZZZZ Detoxification Services for Substance Abuse Treatment (ICD-10-PCS; principal; 2023-04-15)
DX: F10.230 Alcohol dependence with withdrawal, uncomplicated (principal); F14.20 Cocaine dependence, uncomplicated; F12.20 Cannabis dependence, uncomplicated; F17.210 Nicotine dependence, cigarettes, uncomplicated; H40.9 Unspecified glaucoma; I10 Essential (primary) hypertension; N40.0 Benign prostatic hyperplasia without lower urinary tract symptoms; R63.4 Abnormal weight loss; Z68.1 Body mass index [BMI] 19.9 or less, adult; Z86.11 Personal history of tuberculosis; Z99.89 Dependence on other enabling machines and devices
CPT/HCPCS: 36415; 80048; 80053; 80307; 85027; 86780; 87635; 90686; G0008

== ENCOUNTER 2023-04-19 13:45 | Inpatient (IN) | payer BC ==
[2023-04-19] MEDS ORDERED: POLYETHYLENE GLYCOL (HEALTHYLAX) 3350 17 GM PACKET PO PRN (14:30)
[2023-04-19] MEDS ORDERED: BENZOCAINE/MENTHOL (CHLORASEPTIC ) LOZENGE MM PRN (14:30)
[2023-04-19] MEDS ORDERED: NICOTINE POLACRILEX 4 MG GUM BUC PRN (14:30)
[2023-04-19] MEDS ORDERED: guaiFENesin 600 MG TABLET.ER (FP) PO PRN (14:30)
[2023-04-19] MEDS ORDERED: LOPERAMIDE HCL 2 MG CAPSULE PO PRN (14:30)
[2023-04-19] MEDS ORDERED: MAG HYDROX/AL HYDROX/SIMETH 30 ML UNIT-DOSE CUP PO PRN (14:30)
[2023-04-19] MEDS ORDERED: ACETAMINOPHEN 325 MG TABLET (FP) PO PRN (14:30)
[2023-04-19] MEDS ORDERED: NALOXONE HCL 0.4 MG/ML VIAL IVPUSH PRN (14:30)
[2023-04-19] MEDS ORDERED: MAGNESIUM HYDROX 2400MG/30ML ORAL SUSPENSION 30 ML CUP PO PRN (14:30)
[2023-04-19] MEDS ORDERED: NALOXONE HCL (KLOXXADO) 8 MG SPRAY NS PRN (14:30)
[2023-04-19] MEDS ORDERED: BENZONATATE 200 MG CAPSULE PO PRN (14:30)
[2023-04-19] MEDS ORDERED: AMMONIUM LACTATE 12% LOTION 225 GM BOTTLE TP PRN (14:30)
[2023-04-19] MEDS ORDERED: COLLOIDAL OATMEAL 1 BAR EACH TP PRN (14:30)
[2023-04-19] MEDS ORDERED: hydrOXYzine PAMOATE 25 MG CAPSULE (FP) PO PRN (14:30)
[2023-04-19] MEDS ORDERED: NICOTINE 14 MG/24 HOURS TOPICAL PATCH TD PRN (14:30)
[2023-04-19] MEDS: MELATONIN 5 MG TABLETS PO SCH (21:43)
[2023-04-19] MEDS: THIAMINE HCL 100 MG TABLET (FP) PO SCH (21:43)
[2023-04-20] MEDS: FOLIC ACID 1 MG TABLET (FP) PO SCH (09:58)
[2023-04-20] MEDS: TAMSULOSIN HCL 0.4 MG CAP PO SCH (09:58)
[2023-04-20] MEDS: FERROUS SO4 325 MG TABLET (FP) PO SCH (09:58)
[2023-04-20] MEDS: ASPIRIN COATED 81 MG TABLET.EC PO SCH (09:58)
[2023-04-20] MEDS: PRENATAL VITAMINS W/ FOLIC ACID TABLET (FP) PO SCH (09:59)
[2023-04-20] MEDS: amLODIPine BESYLATE 10 MG TABLET (FP) PO SCH (09:59)
[2023-04-20] MEDS ORDERED: ASPIRIN 81 MG CHEWABLE TABLETS PO SCH (10:00)
[2023-04-20] MEDS: LACTULOSE 20 GM/30 ML UDC (FOR ORAL USE ONLY) PO SCH ×2 (13:12→21:17)
[2023-04-20] MEDS: MELATONIN 5 MG TABLETS PO SCH (21:16)
[2023-04-20] MEDS: THIAMINE HCL 100 MG TABLET (FP) PO SCH (21:16)
[2023-04-20] MEDS: LATANOPROST 0.005% OPHTH SOLN 2.5ML BOTTLE OU SCH (21:16)
[2023-04-20] MEDS ORDERED: PATIENT'S OWN MEDICATION (NON-FORMULARY) (Latanoprost/Pf [Latanoprost 0.005% Eye Drop] 7.5 OU SCH (22:00)
[2023-04-21] MEDS: LACTULOSE 20 GM/30 ML UDC (FOR ORAL USE ONLY) PO SCH ×3 (06:47→21:29)
[2023-04-21] MEDS: TAMSULOSIN HCL 0.4 MG CAP PO SCH (07:39)
[2023-04-21] MEDS: PRENATAL VITAMINS W/ FOLIC ACID TABLET (FP) PO SCH (09:59)
[2023-04-21] MEDS: FOLIC ACID 1 MG TABLET (FP) PO SCH (09:59)
[2023-04-21] MEDS: ASPIRIN COATED 81 MG TABLET.EC PO SCH (09:59)
[2023-04-21] MEDS: FERROUS SO4 325 MG TABLET (FP) PO SCH (09:59)
[2023-04-21] MEDS: amLODIPine BESYLATE 10 MG TABLET (FP) PO SCH (09:59)
[2023-04-21] MEDS: LATANOPROST 0.005% OPHTH SOLN 2.5ML BOTTLE OU SCH (21:29)
[2023-04-21] MEDS: THIAMINE HCL 100 MG TABLET (FP) PO SCH (21:29)
[2023-04-21] MEDS: MELATONIN 5 MG TABLETS PO SCH (21:29)
[2023-04-22] MEDS: LACTULOSE 20 GM/30 ML UDC (FOR ORAL USE ONLY) PO SCH ×3 (06:43→21:14)
[2023-04-22] MEDS: TAMSULOSIN HCL 0.4 MG CAP PO SCH (07:38)
[2023-04-22] MEDS: ASPIRIN COATED 81 MG TABLET.EC PO SCH (10:14)
[2023-04-22] MEDS: PRENATAL VITAMINS W/ FOLIC ACID TABLET (FP) PO SCH (10:15)
[2023-04-22] MEDS: FERROUS SO4 325 MG TABLET (FP) PO SCH (10:15)
[2023-04-22] MEDS: FOLIC ACID 1 MG TABLET (FP) PO SCH (10:15)
[2023-04-22] MEDS: amLODIPine BESYLATE 10 MG TABLET (FP) PO SCH (10:15)
[2023-04-22] MEDS: THIAMINE HCL 100 MG TABLET (FP) PO SCH (21:14)
[2023-04-22] MEDS: MELATONIN 5 MG TABLETS PO SCH (21:14)
[2023-04-22] MEDS: LATANOPROST 0.005% OPHTH SOLN 2.5ML BOTTLE OU SCH (21:14)
[2023-04-23] MEDS: LACTULOSE 20 GM/30 ML UDC (FOR ORAL USE ONLY) PO SCH ×3 (06:41→21:19)
[2023-04-23] MEDS: TAMSULOSIN HCL 0.4 MG CAP PO SCH (08:33)
[2023-04-23] MEDS: amLODIPine BESYLATE 10 MG TABLET (FP) PO SCH (10:02)
[2023-04-23] MEDS: FERROUS SO4 325 MG TABLET (FP) PO SCH (10:02)
[2023-04-23] MEDS: PRENATAL VITAMINS W/ FOLIC ACID TABLET (FP) PO SCH (10:02)
[2023-04-23] MEDS: FOLIC ACID 1 MG TABLET (FP) PO SCH (10:02)
[2023-04-23] MEDS: ASPIRIN COATED 81 MG TABLET.EC PO SCH (10:02)
[2023-04-23] MEDS: METHOCARBAMOL 500 MG TABLET PO PRN ×2 (10:03→21:16)
[2023-04-23] MEDS: IBUPROFEN 600 MG TABLET (FP) PO PRN (10:03)
[2023-04-23] MEDS: THIAMINE HCL 100 MG TABLET (FP) PO SCH (21:16)
[2023-04-23] MEDS: IBUPROFEN 400 MG TABLET (FP) PO PRN (21:18)
[2023-04-23] MEDS: MELATONIN 5 MG TABLETS PO SCH (21:19)
[2023-04-23] MEDS: LATANOPROST 0.005% OPHTH SOLN 2.5ML BOTTLE OU SCH (21:20)
[2023-04-24] MEDS: LACTULOSE 20 GM/30 ML UDC (FOR ORAL USE ONLY) PO SCH ×3 (06:45→21:35)
[2023-04-24] MEDS: TAMSULOSIN HCL 0.4 MG CAP PO SCH (07:36)
[2023-04-24] MEDS: FOLIC ACID 1 MG TABLET (FP) PO SCH (09:51)
[2023-04-24] MEDS: FERROUS SO4 325 MG TABLET (FP) PO SCH (09:51)
[2023-04-24] MEDS: amLODIPine BESYLATE 10 MG TABLET (FP) PO SCH (09:51)
[2023-04-24] MEDS: ASPIRIN COATED 81 MG TABLET.EC PO SCH (09:51)
[2023-04-24] MEDS: PRENATAL VITAMINS W/ FOLIC ACID TABLET (FP) PO SCH (09:51)
[2023-04-24] MEDS: METHOCARBAMOL 500 MG TABLET PO PRN ×2 (09:52→21:36)
[2023-04-24] MEDS: IBUPROFEN 600 MG TABLET (FP) PO PRN (09:52)
[2023-04-24] MEDS: THIAMINE HCL 100 MG TABLET (FP) PO SCH (21:35)
[2023-04-24] MEDS: MELATONIN 5 MG TABLETS PO SCH (21:36)
[2023-04-24] MEDS: LATANOPROST 0.005% OPHTH SOLN 2.5ML BOTTLE OU SCH (21:37)
[2023-04-25] MEDS: IBUPROFEN 400 MG TABLET (FP) PO PRN ×2 (00:03→06:28)
[2023-04-25] MEDS: LACTULOSE 20 GM/30 ML UDC (FOR ORAL USE ONLY) PO SCH (06:29)
[2023-04-25] MEDS: TAMSULOSIN HCL 0.4 MG CAP PO SCH (07:39)
[2023-04-25] MEDS: PRENATAL VITAMINS W/ FOLIC ACID TABLET (FP) PO SCH (09:41)
[2023-04-25] MEDS: ASPIRIN COATED 81 MG TABLET.EC PO SCH (09:41)
[2023-04-25] MEDS: amLODIPine BESYLATE 10 MG TABLET (FP) PO SCH (09:41)
[2023-04-25] MEDS: FERROUS SO4 325 MG TABLET (FP) PO SCH (09:41)
[2023-04-25] MEDS: FOLIC ACID 1 MG TABLET (FP) PO SCH (09:41)
[2023-04-25] MEDS: RIFAXIMIN 550 MG TABLET PO SCH ×2 (13:00→21:54)
[2023-04-25] MEDS: MELATONIN 5 MG TABLETS PO SCH (21:32)
[2023-04-25] MEDS: IBUPROFEN 600 MG TABLET (FP) PO PRN (21:32)
[2023-04-25] MEDS: THIAMINE HCL 100 MG TABLET (FP) PO SCH (21:32)
[2023-04-25] MEDS: LATANOPROST 0.005% OPHTH SOLN 2.5ML BOTTLE OU SCH (21:33)
[2023-04-26] MEDS: IBUPROFEN 400 MG TABLET (FP) PO PRN ×2 (06:31→21:38)
[2023-04-26] MEDS: TAMSULOSIN HCL 0.4 MG CAP PO SCH (07:44)
[2023-04-26] MEDS: ASPIRIN COATED 81 MG TABLET.EC PO SCH (09:59)
[2023-04-26] MEDS: FOLIC ACID 1 MG TABLET (FP) PO SCH (09:59)
[2023-04-26] MEDS: FERROUS SO4 325 MG TABLET (FP) PO SCH (09:59)
[2023-04-26] MEDS: PRENATAL VITAMINS W/ FOLIC ACID TABLET (FP) PO SCH (10:00)
[2023-04-26] MEDS: amLODIPine BESYLATE 10 MG TABLET (FP) PO SCH (10:00)
[2023-04-26] MEDS: RIFAXIMIN 550 MG TABLET PO SCH ×2 (10:00→21:39)
[2023-04-26] MEDS: LATANOPROST 0.005% OPHTH SOLN 2.5ML BOTTLE OU SCH (21:39)
[2023-04-26] MEDS: THIAMINE HCL 100 MG TABLET (FP) PO SCH (21:39)
[2023-04-26] MEDS: MELATONIN 5 MG TABLETS PO SCH (21:39)
[2023-04-27] MEDS: TAMSULOSIN HCL 0.4 MG CAP PO SCH (07:48)
[2023-04-27] MEDS: ASPIRIN COATED 81 MG TABLET.EC PO SCH (09:44)
[2023-04-27] MEDS: FERROUS SO4 325 MG TABLET (FP) PO SCH (09:44)
[2023-04-27] MEDS: FOLIC ACID 1 MG TABLET (FP) PO SCH (09:45)
[2023-04-27] MEDS: amLODIPine BESYLATE 10 MG TABLET (FP) PO SCH (09:45)
[2023-04-27] MEDS: RIFAXIMIN 550 MG TABLET PO SCH (09:45)
[2023-04-27] MEDS: PRENATAL VITAMINS W/ FOLIC ACID TABLET (FP) PO SCH (09:45)
[2023-04-27] MEDS: MELATONIN 5 MG TABLETS PO SCH (21:40)
[2023-04-27] MEDS: THIAMINE HCL 100 MG TABLET (FP) PO SCH (21:40)
[2023-04-27] MEDS: LATANOPROST 0.005% OPHTH SOLN 2.5ML BOTTLE OU SCH (21:41)
[2023-04-28] MEDS: TAMSULOSIN HCL 0.4 MG CAP PO SCH (07:41)
[2023-04-28] MEDS: amLODIPine BESYLATE 10 MG TABLET (FP) PO SCH (10:25)
[2023-04-28] MEDS: FERROUS SO4 325 MG TABLET (FP) PO SCH (10:25)
[2023-04-28] MEDS: PRENATAL VITAMINS W/ FOLIC ACID TABLET (FP) PO SCH (10:25)
[2023-04-28] MEDS: FOLIC ACID 1 MG TABLET (FP) PO SCH (10:25)
[2023-04-28] MEDS: ASPIRIN COATED 81 MG TABLET.EC PO SCH (10:25)
[2023-04-28] MEDS: MELATONIN 5 MG TABLETS PO SCH (21:19)
[2023-04-28] MEDS: LATANOPROST 0.005% OPHTH SOLN 2.5ML BOTTLE OU SCH (21:20)
[2023-04-28] MEDS: THIAMINE HCL 100 MG TABLET (FP) PO SCH (21:20)
[2023-04-29] MEDS: TAMSULOSIN HCL 0.4 MG CAP PO SCH (07:43)
[2023-04-29] MEDS: FERROUS SO4 325 MG TABLET (FP) PO SCH (09:40)
[2023-04-29] MEDS: FOLIC ACID 1 MG TABLET (FP) PO SCH (09:40)
[2023-04-29] MEDS: PRENATAL VITAMINS W/ FOLIC ACID TABLET (FP) PO SCH (09:41)
[2023-04-29] MEDS: amLODIPine BESYLATE 10 MG TABLET (FP) PO SCH (09:41)
[2023-04-29] MEDS: ASPIRIN COATED 81 MG TABLET.EC PO SCH (09:41)
[2023-04-29] MEDS: LATANOPROST 0.005% OPHTH SOLN 2.5ML BOTTLE OU SCH (21:28)
[2023-04-29] MEDS: MELATONIN 5 MG TABLETS PO SCH (21:28)
[2023-04-29] MEDS: THIAMINE HCL 100 MG TABLET (FP) PO SCH (21:28)
[2023-04-30] MEDS: TAMSULOSIN HCL 0.4 MG CAP PO SCH (07:36)
[2023-04-30] MEDS: ASPIRIN COATED 81 MG TABLET.EC PO SCH (09:56)
[2023-04-30] MEDS: FERROUS SO4 325 MG TABLET (FP) PO SCH (09:57)
[2023-04-30] MEDS: FOLIC ACID 1 MG TABLET (FP) PO SCH (09:57)
[2023-04-30] MEDS: PRENATAL VITAMINS W/ FOLIC ACID TABLET (FP) PO SCH (09:57)
[2023-04-30] MEDS: amLODIPine BESYLATE 10 MG TABLET (FP) PO SCH (09:57)
[2023-04-30] MEDS: MELATONIN 5 MG TABLETS PO SCH (21:23)
[2023-04-30] MEDS: LATANOPROST 0.005% OPHTH SOLN 2.5ML BOTTLE OU SCH (21:23)
[2023-04-30] MEDS: THIAMINE HCL 100 MG TABLET (FP) PO SCH (21:23)
[2023-05-01] MEDS: TAMSULOSIN HCL 0.4 MG CAP PO SCH (07:35)
[2023-05-01] MEDS: PRENATAL VITAMINS W/ FOLIC ACID TABLET (FP) PO SCH (09:33)
[2023-05-01] MEDS: amLODIPine BESYLATE 10 MG TABLET (FP) PO SCH (09:33)
[2023-05-01] MEDS: FOLIC ACID 1 MG TABLET (FP) PO SCH (09:33)
[2023-05-01] MEDS: ASPIRIN COATED 81 MG TABLET.EC PO SCH (09:33)
[2023-05-01] MEDS: FERROUS SO4 325 MG TABLET (FP) PO SCH (09:33)
[2023-05-01] MEDS: THIAMINE HCL 100 MG TABLET (FP) PO SCH (21:12)
[2023-05-01] MEDS: MELATONIN 5 MG TABLETS PO SCH (21:12)
[2023-05-01] MEDS: LATANOPROST 0.005% OPHTH SOLN 2.5ML BOTTLE OU SCH (21:12)
[2023-05-02] MEDS: IBUPROFEN 400 MG TABLET (FP) PO PRN (06:34)
[2023-05-02] MEDS: TAMSULOSIN HCL 0.4 MG CAP PO SCH (08:00)
[2023-05-02] MEDS: FERROUS SO4 325 MG TABLET (FP) PO SCH (09:40)
[2023-05-02] MEDS: amLODIPine BESYLATE 10 MG TABLET (FP) PO SCH (09:40)
[2023-05-02] MEDS: FOLIC ACID 1 MG TABLET (FP) PO SCH (09:40)
[2023-05-02] MEDS: ASPIRIN COATED 81 MG TABLET.EC PO SCH (09:40)
[2023-05-02] MEDS: PRENATAL VITAMINS W/ FOLIC ACID TABLET (FP) PO SCH (09:40)
[2023-05-02] MEDS: LATANOPROST 0.005% OPHTH SOLN 2.5ML BOTTLE OU SCH (21:23)
[2023-05-02] MEDS: THIAMINE HCL 100 MG TABLET (FP) PO SCH (21:23)
[2023-05-02] MEDS: MELATONIN 5 MG TABLETS PO SCH (21:23)
[2023-05-03 07:22] VITALS: RESP 17; TEMP 97.6
[2023-05-03] MEDS: TAMSULOSIN HCL 0.4 MG CAP PO SCH (07:56)
[2023-05-03 09:13] VITALS: BP 155/95; PULSE 88
[2023-05-03] MEDS: PRENATAL VITAMINS W/ FOLIC ACID TABLET (FP) PO SCH (09:13)
[2023-05-03] MEDS: amLODIPine BESYLATE 10 MG TABLET (FP) PO SCH (09:13)
[2023-05-03] MEDS: FERROUS SO4 325 MG TABLET (FP) PO SCH (09:13)
[2023-05-03] MEDS: ASPIRIN COATED 81 MG TABLET.EC PO SCH (09:13)
[2023-05-03] MEDS: FOLIC ACID 1 MG TABLET (FP) PO SCH (09:13)
== END 2023-05-03 09:18 | disposition home or self-care (01) | DRG 772 ==
LOC: YASAS 13:45 → Y3E 13:51
PROVIDERS: ADMIT Allergy & Immunology; ATTEND Psychiatry & Neurology Pain Medicine
PROC: HZ42ZZZ Group Counseling for Substance Abuse Treatment, Cognitive-Behavioral (ICD-10-PCS; principal; 2023-04-19)
DX: F10.20 Alcohol dependence, uncomplicated (principal); F14.20 Cocaine dependence, uncomplicated; F17.210 Nicotine dependence, cigarettes, uncomplicated; E72.20 Disorder of urea cycle metabolism, unspecified; D50.9 Iron deficiency anemia, unspecified; I12.9 Hypertensive chronic kidney disease with stage 1 through stage 4 chronic kidney disease, or unspecified chronic kidney disease; N18.30 Chronic kidney disease, stage 3 unspecified; M25.572 Pain in left ankle and joints of left foot; G89.29 Other chronic pain; N40.0 Benign prostatic hyperplasia without lower urinary tract symptoms; Z86.19 Personal history of other infectious and parasitic diseases; Z99.89 Dependence on other enabling machines and devices
CPT/HCPCS: 36415; 82140; 86803; 87522

== ENCOUNTER 2023-07-22 13:02 | Inpatient (IN) | payer BC ==
[2023-07-22 14:30] VITALS: BMI 17.6
[2023-07-22] MEDS ORDERED: MAG HYDROX/AL HYDROX/SIMETH 30 ML UNIT-DOSE CUP PO PRN (16:28)
[2023-07-22] MEDS ORDERED: IBUPROFEN 600 MG TABLET (FP) PO PRN (16:28)
[2023-07-22] MEDS ORDERED: NICOTINE POLACRILEX 2 MG GUM BUC PRN (16:28)
[2023-07-22] MEDS ORDERED: MAGNESIUM HYDROX 2400MG/30ML ORAL SUSPENSION 30 ML CUP PO PRN (16:28)
[2023-07-22] MEDS ORDERED: BISMUTH SUBSALICYLATE 524 MG/30 ML PO PRN (16:28)
[2023-07-22] MEDS ORDERED: NALOXONE HCL (KLOXXADO) 8 MG SPRAY NS PRN (16:28)
[2023-07-22] MEDS ORDERED: DICYCLOMINE HCL 10 MG CAPSULE PO PRN (16:28)
[2023-07-22] MEDS ORDERED: NALOXONE HCL 0.4 MG/ML VIAL IM PRN (16:28)
[2023-07-22] MEDS ORDERED: IBUPROFEN 400 MG TABLET (FP) PO PRN (16:28)
[2023-07-22] MEDS ORDERED: LOPERAMIDE HCL 2 MG CAPSULE PO PRN (16:28)
[2023-07-22] MEDS ORDERED: guaiFENesin 600 MG TABLET.ER (FP) PO PRN (16:28)
[2023-07-22] MEDS: diazePAM 5 MG TABLET PO SCH ×2 (17:00→18:38)
[2023-07-22] MEDS: ONDANSETRON *ODT* 4 MG TABLET SL PRN (18:41)
[2023-07-22] MEDS: MELATONIN 5 MG TABLETS PO SCH (22:57)
[2023-07-22] MEDS: THIAMINE HCL 100 MG TABLET (FP) PO SCH (22:58)
[2023-07-22] MEDS: LATANOPROST 0.005% OPHTH SOLN 2.5ML BOTTLE OU SCH (22:59)
[2023-07-23] MEDS: BENZONATATE 200 MG CAPSULE PO PRN (05:22)
[2023-07-23] MEDS: TAMSULOSIN HCL 0.4 MG CAP PO SCH (07:40)
[2023-07-23] MEDS: amLODIPine BESYLATE 10 MG TABLET (FP) PO SCH (10:27)
[2023-07-23] MEDS: ASPIRIN 81 MG CHEWABLE TABLETS PO SCH (10:27)
[2023-07-23] MEDS: PRENATAL VITAMINS W/ FOLIC ACID TABLET (FP) PO SCH (10:27)
[2023-07-23] MEDS: LISINOPRIL 5 MG TABLET PO SCH (10:27)
[2023-07-23 11:53] LABS: CHLORIDE 108 mmol/L (98-107); POTASSIUM 4.6 mmol/L (3.5-5.1); SODIUM 145 mmol/L (136-145)
[2023-07-23 12:04] LABS: ALBUMIN 2.8 g/dl (3.4-5.0); ANION GAP 3 mmol/L (4-13); BLOOD UREA NITROGEN 26.3 mg/dL (7-18); CALCIUM 9.3 mg/dL (8.5-10.1); CO2 34 mmol/L (21-32); GLUCOSE,RANDOM 81 mg/dL (74-106)
[2023-07-23 12:05] LABS: HEMATOCRIT 35.1 % (35.4-49); MCH 30.3 pg (25.7-33.7); MCHC 34.2 g/dl (32.0-35.9); MEAN CELL VOLUME 88.8 fl (80-96); MEAN PLT VOLUME 9.5 fl (7.5-11.1); PLATELET COUNT 186 10^3/uL (134-434); RBC 3.95 M/mm3 (4.00-5.60); RDW 14.5 % (11.9-15.9); WHITE BLOOD COUNT 6.1 K/mm3 (4.0-10.0)
[2023-07-23 12:07] LABS: CREATININE 1.5 mg/dL (0.55-1.3); SGOT/AST 31 U/L (15-37); SGPT/ALT 42 U/L (13-61)
[2023-07-23 12:08] LABS: BILIRUBIN,TOTAL 0.2 mg/dL (0.2-1)
[2023-07-23 12:09] LABS: ALK PHOS 62 U/L (45-117)
[2023-07-24] MEDS: diazePAM 5 MG TABLET PO SCH (05:37)
[2023-07-24] MEDS: hydrOXYzine PAMOATE 25 MG CAPSULE (FP) PO PRN (06:50)
[2023-07-24] MEDS: LISINOPRIL 10 MG TABLET PO SCH (09:48)
[2023-07-24] MEDS: TIOTROPIUM BROMIDE 2.5 MCG (SPIRIVA) RESPIMAT INHALER IH SCH (12:07)
[2023-07-24] MEDS: diazePAM 5 MG TABLET PO PRN (17:31)
[2023-07-25] MEDS: diazePAM 5 MG TABLET PO SCH (05:25)
[2023-07-25] MEDS: BENZOCAINE/MENTHOL (CHLORASEPTIC ) LOZENGE MM PRN (17:42)
[2023-07-25] MEDS: METHOCARBAMOL 500 MG TABLET PO PRN (22:05)
[2023-07-25] MEDS: POLYETHYLENE GLYCOL (HEALTHYLAX) 3350 17 GM PACKET PO PRN (22:10)
[2023-07-26] MEDS: diazePAM 5 MG TABLET PO ONE (05:32)
[2023-07-26] MEDS: ACETAMINOPHEN 325 MG TABLET (FP) PO PRN (05:34)
[2023-07-26 09:53] VITALS: BP 138/90; PULSE 95; RESP 18; TEMP 97.5
== END 2023-07-26 10:02 | disposition home or self-care (01) | DRG 774 ==
LOC: YASAS 13:02 → Y6N 16:47
PROVIDERS: ADMIT Allergy & Immunology; ATTEND Surgery
PROC: HZ2ZZZZ Detoxification Services for Substance Abuse Treatment (ICD-10-PCS; principal; 2023-07-22)
DX: F10.230 Alcohol dependence with withdrawal, uncomplicated (principal); F14.20 Cocaine dependence, uncomplicated; F17.213 Nicotine dependence, cigarettes, with withdrawal; J43.0 Unilateral pulmonary emphysema [MacLeod's syndrome]; I12.9 Hypertensive chronic kidney disease with stage 1 through stage 4 chronic kidney disease, or unspecified chronic kidney disease; N18.2 Chronic kidney disease, stage 2 (mild); H40.9 Unspecified glaucoma; N40.0 Benign prostatic hyperplasia without lower urinary tract symptoms; R26.89 Other abnormalities of gait and mobility; Z99.89 Dependence on other enabling machines and devices; Z86.11 Personal history of tuberculosis
CPT/HCPCS: 36415; 80053; 80305; 80307; 85027; 86780; 87635; Q0162

== ENCOUNTER 2023-11-14 12:01 | Inpatient (IN) | payer BC ==
[2023-11-14 12:27] VITALS: BMI 17.4
[2023-11-14] MEDS ORDERED: BENZONATATE 200 MG CAPSULE PO PRN (12:35)
[2023-11-14] MEDS ORDERED: IBUPROFEN 600 MG TABLET (FP) PO PRN (12:35)
[2023-11-14] MEDS ORDERED: BISMUTH SUBSALICYLATE 524 MG/30 ML PO PRN (12:35)
[2023-11-14] MEDS ORDERED: ONDANSETRON *ODT* 4 MG TABLET SL PRN (12:35)
[2023-11-14] MEDS ORDERED: ACETAMINOPHEN 325 MG TABLET (FP) PO PRN (12:35)
[2023-11-14] MEDS ORDERED: POLYETHYLENE GLYCOL (HEALTHYLAX) 3350 17 GM PACKET PO PRN (12:35)
[2023-11-14] MEDS ORDERED: MAGNESIUM HYDROX 2400MG/30ML ORAL SUSPENSION 30 ML CUP PO PRN (12:35)
[2023-11-14] MEDS ORDERED: NICOTINE POLACRILEX 2 MG GUM BUC PRN (12:35)
[2023-11-14] MEDS ORDERED: DICYCLOMINE HCL 10 MG CAPSULE PO PRN (12:35)
[2023-11-14] MEDS ORDERED: P-EPHED 60MG/TRIPROLIDI 2.5MG TABLET PO PRN (12:35)
[2023-11-14] MEDS ORDERED: BENZOCAINE/MENTHOL (CHLORASEPTIC ) LOZENGE MM PRN (12:35)
[2023-11-14] MEDS ORDERED: LOPERAMIDE HCL 2 MG CAPSULE PO PRN (12:35)
[2023-11-14] MEDS ORDERED: NICOTINE POLACRILEX 2 MG LOZENGE BC PRN (12:35)
[2023-11-14] MEDS ORDERED: IBUPROFEN 400 MG TABLET (FP) PO PRN (12:35)
[2023-11-14] MEDS ORDERED: guaiFENesin 600 MG TABLET.ER (FP) PO PRN (12:35)
[2023-11-14] MEDS ORDERED: diazePAM 5 MG TABLET PO PRN (12:46)
[2023-11-14] MEDS: metoPROLOL SUCCINATE 25 MG TAB.SR.24H (FP) PO SCH (22:30)
[2023-11-14] MEDS: diazePAM 5 MG TABLET PO SCH (22:30)
[2023-11-14] MEDS: LATANOPROST 0.005% OPHTH SOLN 2.5ML BOTTLE OU SCH (22:30)
[2023-11-14] MEDS: THIAMINE 100 MG TABLET PO SCH (22:31)
[2023-11-14] MEDS: MELATONIN 5 MG TABLETS PO SCH (22:31)
[2023-11-14] MEDS: ROSUVASTATIN CA 10 MG TABLET PO SCH (22:41)
[2023-11-15] MEDS: diazePAM 5 MG TABLET PO SCH (05:56)
[2023-11-15] MEDS: TIOTROPIUM BROMIDE 2.5 MCG (SPIRIVA) RESPIMAT INHALER IH SCH (09:19)
[2023-11-15] MEDS: amLODIPine BESYLATE 10 MG TABLET (FP) PO SCH (09:20)
[2023-11-15] MEDS: PRENATAL VITAMINS W/ FOLIC ACID TABLET (FP) PO SCH (09:20)
[2023-11-15] MEDS: FOLIC ACID 1 MG TABLET (FP) PO SCH (09:20)
[2023-11-15] MEDS: TAMSULOSIN HCL 0.4 MG CAP PO SCH (09:20)
[2023-11-15 12:25] LABS: CHLORIDE 109 mmol/L (98-107); POTASSIUM 4.1 mmol/L (3.5-5.1); SODIUM 144 mmol/L (136-145)
[2023-11-15 12:27] LABS: CALCIUM 8.5 mg/dL (8.5-10.1)
[2023-11-15 12:28] LABS: ANION GAP 5 mmol/L (4-13); BLOOD UREA NITROGEN 33.8 mg/dL (7-18); CO2 29 mmol/L (21-32); GLUCOSE,RANDOM 100 mg/dL (74-106)
[2023-11-15 12:29] LABS: HEMATOCRIT 33.7 % (35.4-49); HEMOGLOBIN 11.1 GM/dL (11.7-16.9); MCH 30.7 pg (25.7-33.7); MCHC 32.9 g/dl (32.0-35.9); MEAN CELL VOLUME 93.2 fl (80-96); MEAN PLT VOLUME 9.1 fl (7.5-11.1); PLATELET COUNT 224 10^3/uL (134-434); RBC 3.61 M/mm3 (4.00-5.60); RDW 14.4 % (11.9-15.9); WHITE BLOOD COUNT 5.6 K/mm3 (4.0-10.0)
[2023-11-15 12:31] LABS: CREATININE 1.6 mg/dL (0.55-1.3); SGOT/AST 43 U/L (15-37); SGPT/ALT 38 U/L (13-61)
[2023-11-15 12:32] LABS: BILIRUBIN,TOTAL 0.2 mg/dL (0.2-1); TOT PROT 6.4 g/dl (6.4-8.2)
[2023-11-15 12:34] LABS: ALK PHOS 60 U/L (45-117)
[2023-11-16] MEDS: diazePAM 5 MG TABLET PO SCH (05:27)
[2023-11-16 21:03] VITALS: RESP 18
[2023-11-16] MEDS: METHOCARBAMOL 500 MG TABLET PO PRN (21:27)
[2023-11-17] MEDS: diazePAM 5 MG TABLET PO ONE (05:44)
[2023-11-17 08:50] VITALS: BP 148/105; PULSE 77; TEMP 98.2
[2023-11-17] MEDS: MAG HYDROX/AL HYDROX/SIMETH 30 ML UNIT-DOSE CUP PO PRN (10:33)
== END 2023-11-17 11:09 | disposition home or self-care (01) | DRG 774 ==
LOC: YASAS 12:01 → Y3N 13:26
PROVIDERS: ADMIT Allergy & Immunology; ATTEND Surgery
PROC: HZ2ZZZZ Detoxification Services for Substance Abuse Treatment (ICD-10-PCS; principal; 2023-11-14)
DX: F10.230 Alcohol dependence with withdrawal, uncomplicated (principal); F14.20 Cocaine dependence, uncomplicated; F17.210 Nicotine dependence, cigarettes, uncomplicated; F39 Unspecified mood [affective] disorder; F32.A Depression, unspecified; I12.9 Hypertensive chronic kidney disease with stage 1 through stage 4 chronic kidney disease, or unspecified chronic kidney disease; N18.9 Chronic kidney disease, unspecified; J43.0 Unilateral pulmonary emphysema [MacLeod's syndrome]; H40.9 Unspecified glaucoma; N40.0 Benign prostatic hyperplasia without lower urinary tract symptoms; R76.8 Other specified abnormal immunological findings in serum; R26.89 Other abnormalities of gait and mobility; Z99.89 Dependence on other enabling machines and devices
CPT/HCPCS: 36415; 80053; 80305; 80307; 85027; 86780